=== PATIENT | female | born 1955 | race Two or more races ===

== ENCOUNTER 2019-06-13 15:39 | Emergency (ER) | payer OTHER, SELFPAY ==
--- NOTE | ~2019-06-13 | XR_ITS ---
EXAMINATION: XR chest 2V 06/13/2019 16:20 INDICATION: Shortness of breath for 3 days PROCEDURE: 2 view chest COMPARISON: 03/16/2018 FINDINGS: The lungs are clear. The cardiomediastinal silhouette is within normal limits. There are no pleural effusions. There is no pneumothorax suspected. IMPRESSION: 1: NO ACUTE CARDIOPULMONARY DISEASE. Reviewed, dictated and finalized at location A.
--- NOTE | ~2019-06-13 | CT_ITS ---
EXAMINATION: CTA chest PE protocol DATE: 06/13/2019 17:12 CDT INDICATION: Dyspnea TECHNIQUE: Computed tomographic angiography (CTA) of the chest was performed with 100 mL Omnipaque-35 0 intravenous contrast. The dose-length product was 460.55 mGy-cm. Maximum intensity projection 3D-re constructions of the aorta and other arteries were constructed by the technologist on a separate work station. Automated exposure control and iterative reconstruction technique were employed. COMPARISON: Chest dated 06/13/2019. FINDINGS: The study is technically adequate without evidence for pulmonary embolism. No significant p leural or pericardial effusion. Heart size normal. No lymphadenopathy. Small hiatal hernia. No focal airspace consolidation. No pneumothorax. No pulmonary nodules. No pneumothorax. No endobronchial lesi ons. IMPRESSION: 1. No evidence for pulmonary embolism. No acute cardiopulmonary disease. Reviewed, dictated and finalized at location A.
[2019-06-13 15:45] VITALS: BP 182/83; PULSE 84; RESP 18; TEMP 37.1; O2SAT 99
--- NOTE | 2019-06-13 15:45 | ECG_ITS ---
Measurements Intervals [place] Rate: 87 P: 58 AK: 139 QRS: 35 QRSD: 89 T: 38 QT: 345 QTc: 415 Interpretive Statements SINUS RHYTHM NONSPECIFIC T-WAVE ABNORMALITY- ANT/INF LEADS BORDERLINE ECG Electronically Signed On 06-14-2019 7:06:28 CDT by Vinicius Chirinos D.O.
[2019-06-13 15:48] VITALS: BP 182/83; PULSE 84; PULSE 85; RESP 10; O2SAT 99
[2019-06-13 16:01] LABS: Basophils Percent Auto 0.5 % (0.2-1.2); Eosinophils Absolute Auto 0.3 K/mm3 (0-0.3); Eosinophils Percent Auto 4.1 % (0-4.4); Hematocrit 38.1 % (37.0-47.0); Hemoglobin 12.6 g/dL (12.0-15.0); Immature Granulocyte Absolute 0.01 K/mm3 (0.00-0.031); Immature Granulocyte Percent A 0.1 % (0-0.5); Lymphocytes Absolute Auto 2.66 K/mm3 (0.9-3.2); Mean Corpuscular HGB Conc 33.1 g/dl (32-36); Mean Corpuscular Hemoglobin 28.9 pg (26-34); Mean Corpuscular Volume 87.4 fl (80-100); Mean Platelet Volume 10.7 fl (7.4-10.4); Monocytes Absolute Auto 0.8 K/mm3 (0.1-0.6); Monocytes Percent Auto 10.4 % (2.6-8.5); Neutrophils Absolute Auto 3.6 K/mm3 (1.3-6.7); Neutrophils Percent Auto 48.9 % (45.5-73.1); Platelet Count Result 302 k/mm3 (150-375); Red Blood Count 4.36 M/mm3 (4.2-5.4); Red Cell Distribution Width 12.4 % (11.5-14.5); White Blood Count 7.4 K/mm3 (4.5-10.0)
[2019-06-13 16:15] LABS: Blood Urea Nitrogen 11 mg/dL (7-17); Carbon Dioxide 26 mmol/L (22-30); Chloride 106 mmol/L (98-107); Estimated CRCL calculation 81 ml/min; Estimated Glomerular Filt Rate > 60; Glucose 111 mg/dL (65-105); Sodium 138 mmol/L (137-145)
--- NOTE | 2019-06-13 16:33 | ED.SOB ---
HPI - SOB/Dyspnea General Chief Complaint: Shortness of Breath/Dyspnea Stated Complaint: trouble breathing for two/three days Time Seen by Provider: 06/13/19 16:24 Source: RN notes reviewed History of Present Illness HPI Narrative: Patient presents emergency department from home for shortness of breath. States patient has been short of breath for the past 2 days. She denies any other symptoms denies any fevers or chills chest pain abdominal pain nausea or vomiting cough or any other symptoms. She states she just feels like she cannot take a deep breath.. Patient does states she is been having some intermittent lower back pain but denies any current pain at this time Related Data Home Medications Medication Instructions Recorded Confirmed aspirin 81 mg tablet,delayed 81 mg PO DAILY 04/22/19 release carvedilol 3.125 mg tablet 3.125 mg PO Q12H 04/22/19 losartan 25 mg tablet 25 mg PO DAILY 04/22/19 pravastatin 20 mg tablet 20 mg PO DAILY 04/22/19 Allergies Allergy/AdvReac Type Severity Reaction Status Date / Time No Known Allergies Allergy Unverified 06/13/19 15:49 Review of Systems Review of Systems: Narrative: Gen.: Denies fevers or chills ENT: Denies congestion Respiratory: Reports shortness of breath, denies cough CV: Denies chest pain or palpitations GI: Denies abdominal pain nausea, emesis or diarrhea denies burning, urgency, frequency or hematuria Musculoskeletal: Denies back pain or muscle pain Neuro: Denies numbness, tingling, weakness or focal weakness Skin: Denies rash Except as documented, all other systems reviewed and negative [facility] Past Medical History Medical History Arthritis Dyslipidemia Family history of early CAD Hyperlipemia Hypertension Obesity Social History Social History Smoking status: Never smoker Alcohol intake: never Gender identity (if verbalized by the patient): Female Exam Narrative: Exam Narrative: APPEARANCE: No acute distress, nontoxic, resting in bed EYES: EOMI HEENT: Normocephalic, atraumatic, OMM RESPIRATORY: No respiratory distress Clear to auscultation bilaterally with no rhonchi wheezing or rales. CARDIOVASCULAR: Regular rate and rhythm without murmurs rubs or gallops. ABDOMINAL: Soft, nontender, nondistended, no rebound or guarding MUSCULOSKELETAl: Moves all extremities. No clubbing, cyanosis or edema. Back: No midline thoracic lumbar tenderness palpation NEURO: Awake and alert. Following commands, speech normal, no focal deficits SKIN:: Warm, dry. No rashes lesions or abrasions PSYCHIATRIC: Normal affect/mood, Course Course Emergency Course: Reviewed old records. Patient did have pulmonary function test last year. Patient states is normal as well as normal stress test last year Patient states breathing is improved following breathing treatment Discussed with patient results of workup and diagnosis. Discussed need for follow-up with primary care, proper use of medication, and reasons to return to the emergency department. Patient understands and agrees to current treatment plan Vital Signs Vital signs: Vital Signs Temperature 98.7 F 06/13/19 15:45 Pulse Rate 84 06/13/19 15:45 Respiratory Rate 18 06/13/19 15:45 Blood Pressure 182/83 H 06/13/19 15:45 Pulse Oximetry 99 06/13/19 15:45 Temperature 98.7 F 06/13/19 15:45 Pulse Rate 79 06/13/19 17:51 Respiratory Rate 12 06/13/19 17:51 Blood Pressure 147/69 H 06/13/19 17:51 Pulse Oximetry 96 06/13/19 17:51 MDM - SOB/Dyspnea MDM Narrative Medical decision making narrative: Patient has dyspnea of unclear etiology. No wheezing on clinical exam. Low risk well score, PE is felt unlikely. No abnormalities noted on chest x-ray. Patient?s EKG is without high-risk changes. Oxygen saturations are normal. Patient is felt to be a reasonable candidate for additional e
[2019-06-13 16:38] VITALS: BP 155/62; PULSE 76; RESP 17; O2SAT 98
--- NOTE | 2019-06-13 16:38 | PC.NURSE ---
spoke with lab about adding on labwork, vladislav from lab states that she will get accept specimens.
[2019-06-13 17:03] LABS: NT Pro B Type Natriuretic Pept 50 PG/ML (5-100)
[2019-06-13 17:05] LABS: Troponin I < 0.012 ng/mL (0.000-0.034)
[2019-06-13] MEDS: ALBUTEROL SULFATE NEB 2.5 MG/0.5 ML INH 5 MG INHALATION (17:39)
[2019-06-13] MEDS: IPRATROPIUM BR 0.02% INH SOLN 0.5 MG/2.5 ML VIAL INHALATION (17:39)
[2019-06-13 17:40] VITALS: PULSE 79; RESP 18
[2019-06-13 17:51] VITALS: BP 147/69; PULSE 79; RESP 12; O2SAT 96
[2019-06-13 18:03] LABS: Add Urine Microscopic? YES; Appearance Urine Clear (Clear); Bilirubin Urine Negative (Negative); Blood Urine Negative (Negative); Color Urine Straw (Yellow); Glucose Urine UA Negative (Negative); Ketones Urine Negative (Negative); Leukocyte Esterase Ur Trace LEU/UL (Negative); Mucus Urine Rare /lpf; Nitrate Urine Negative (Negative); Protein Urine Negative (Negative); RBC Urine 0-2 /hpf (0-2); Specific Grav Ur 1.009 (1.001-1.035); Squamous Epithelial Cell Urine Rare /hpf (Few); Urobilinogen Urine Negative mg/dL (<2.0)
[2019-06-13 18:28] VITALS: BP 149/78; PULSE 78; RESP 16; O2SAT 100
== END 2019-06-13 18:29 | disposition home or self-care (01) ==
PROVIDERS: Emergency Provider Emergency Medicine; PCP Family Medicine
DX: R06.00 Dyspnea, unspecified (principal); N39.0 Urinary tract infection, site not specified; M19.90 Unspecified osteoarthritis, unspecified site; E78.5 Hyperlipidemia, unspecified; I10 Essential (primary) hypertension; E66.9 Obesity, unspecified; Z68.32 Body mass index [BMI] 32.0-32.9, adult; R94.31 Abnormal electrocardiogram [ECG] [EKG]
CPT/HCPCS: 36415; 71046; 71275; 80048; 81001; 83880; 84484; 85025; 93005; 94640; 99284; Q9967

== ENCOUNTER 2019-08-08 10:03 | Outpatient (CLI) | payer OTHER, SELFPAY | END 2019-08-08 10:04 | disposition home or self-care (01) | LOC: ANHLAB 10:05 | PROVIDERS: PCP Family Medicine; Visit Provider Family Medicine | DX: E55.9 Vitamin D deficiency, unspecified (principal) | CPT/HCPCS: 36415; 82306 ==

== ENCOUNTER 2020-04-26 08:27 | Outpatient (CLI) | payer OTHER, SELFPAY | END 2020-04-26 08:28 | LOC: ANHCOVIDVC 08:27 | PROVIDERS: PCP Family Medicine | DX: Z23 Encounter for immunization (principal) | CPT/HCPCS: 0001A; 91300 ==

== ENCOUNTER 2020-04-26 09:12 | Outpatient (CLI) | payer OTHER, SELFPAY ==
[2020-04-26 09:48] LABS: Basophils Percent Auto 0.5 % (0.2-1.2); Eosinophils Absolute Auto 0.3 K/mm3 (0-0.3); Eosinophils Percent Auto 4.5 % (0-4.4); Hematocrit 39.2 % (37.0-47.0); Hemoglobin 12.8 g/dL (12.0-15.0); Immature Granulocyte Absolute 0.02 K/mm3 (0.00-0.031); Immature Granulocyte Percent A 0.3 % (0-0.5); Lymphocytes Percent Auto 30.4 % (18.3-44.2); Mean Corpuscular HGB Conc 32.7 g/dl (32-36); Mean Corpuscular Hemoglobin 28.8 pg (26-34); Mean Corpuscular Volume 88.1 fl (80-100); Mean Platelet Volume 10.2 fl (7.4-10.4); Monocytes Absolute Auto 0.5 K/mm3 (0.1-0.6); Neutrophils Absolute Auto 3.5 K/mm3 (1.3-6.7); Neutrophils Percent Auto 56.3 % (45.5-73.1); Platelet Count Result 302 k/mm3 (150-375); Red Blood Count 4.45 M/mm3 (4.2-5.4); Red Cell Distribution Width 12.6 % (11.5-14.5); White Blood Count 6.2 K/mm3 (4.5-10.0)
[2020-04-26 10:20] LABS: Alanine Aminotransferase 17 U/L (4-35); Albumin Level 4.2 g/dL (3.5-5.1); Alkaline Phosphatase 69 U/L (38-126); Anion Gap 5 mmol/L (8-16); Aspartate Amino Transferase 23 U/L (14-36); Bilirubin,Total 0.3 mg/dL (0.2-1.3); Blood Urea Nitrogen 8 mg/dL (7-17); Calcium 9.4 mg/dL (8.4-10.2); Carbon Dioxide 28 mmol/L (22-30); Chloride 108 mmol/L (98-107); Cholesterol 161 mg/dL (0-200); Estimated Glomerular Filt Rate > 60; Glucose 104 mg/dL (65-105); HDL Direct 51 mg/dL; Potassium 4.4 mmol/L (3.4-5.0); Sodium 141 mmol/L (137-145); Triglycerides 165 mg/dL (<150)
[2020-04-26 11:25] LABS: Creatinine Urine 12.5 mg/dL
[2020-04-26 11:29] LABS: LDL Cholesterol Direct 70 mg/dL
[2020-04-26 11:40] LABS: Free T4 Free Thyroxine 1.07 ng/mL (0.78-2.19); Vitamin D 25 Hydroxy 42.7 ng/mL
[2020-04-26 11:51] LABS: Microalbumin Urine Random < 6.0 mg/L (0-16.7)
[2020-04-26 12:15] LABS: Total Triiodothyronine (T3) 1.35 NG/ML (0.97-1.69)
== END 2020-04-26 09:13 | disposition home or self-care (01) ==
LOC: ANHLAB 09:16
PROVIDERS: PCP Family Medicine; Visit Provider Family Medicine
DX: Z13.0 Encounter for screening for diseases of the blood and blood-forming organs and certain disorders involving the immune mechanism (principal); Z13.6 Encounter for screening for cardiovascular disorders; Z13.220 Encounter for screening for lipoid disorders; R80.9 Proteinuria, unspecified; E55.9 Vitamin D deficiency, unspecified
CPT/HCPCS: 0001A; 36415; 80053; 80061; 82043; 82306; 84439; 84443; 84480; 85025; 91300

== ENCOUNTER 2020-05-17 07:57 | Outpatient (CLI) | payer OTHER, SELFPAY | END 2020-05-17 07:58 | disposition home or self-care (01) | LOC: ANHCOVIDVC 07:57 | PROVIDERS: PCP Family Medicine | DX: Z23 Encounter for immunization (principal) | CPT/HCPCS: 0002A; 91300 ==

== ENCOUNTER 2020-06-21 16:36 | Emergency (ER) | payer OTHER, SELFPAY ==
--- NOTE | ~2020-06-21 | CT_ITS ---
EXAMINATION: CT abdomen pelvis wo con EXAM DATE: 06/21/2020 20:19 INDICATION: Right flank pain. TECHNIQUE: Spiral CT of the abdomen and pelvis was performed without contrast. Axial, coronal and sag ittal images were reviewed. The dose-length product (DLP) for this examination was 286.41 mGy-cm. T he exposure was tailored according to patient size (auto mA exposure control), and iterative reconstr uction (ASIR) was used as additional dose reduction technique. There is no prior study for compariso n. FINDINGS: Portal and splenic veins are patent. Kidneys enhance symmetrically. There is no hydroneph rosis. The uterus is not identified and has likely been surgically resected. The bladder is unrema rkable. The liver, spleen, adrenal glands and pancreas are unremarkable. Gallbladder is unremarkabl e. No biliary obstruction. There is no retroperitoneal or pelvic lymphadenopathy. The appendix is normal. There is moderate scattered colonic diverticulosis. There is no adjacent inf lammatory change to suggest diverticulitis. There is small sliding gastroesophageal hiatal hernia. T here is expected amount of colonic stool. No free intraperitoneal gas. The heart is normal in siz e. There are no pericardial or pleural effusions. The lung bases are unremarkable. The bones are u nremarkable. IMPRESSION: 1. No nephrolithiasis, hydronephrosis or acute intra-abdominal findings. 2. Moderate scattered colonic diverticulosis. Reviewed, dictated and finalized at location A.
[2020-06-21 17:20] VITALS: BP 176/72; PULSE 74; RESP 18; TEMP 36.3; O2SAT 98
[2020-06-21 17:30] LABS: Basophils Percent Auto 0.3 % (0.2-1.2); Eosinophils Absolute Auto 0.3 K/mm3 (0-0.3); Eosinophils Percent Auto 4.9 % (0-4.4); Hematocrit 38.6 % (37.0-47.0); Hemoglobin 12.7 g/dL (12.0-15.0); Immature Granulocyte Absolute 0.02 K/mm3 (0.00-0.031); Immature Granulocyte Percent A 0.3 % (0-0.5); Lymphocytes Absolute Auto 2.78 K/mm3 (0.9-3.2); Lymphocytes Percent Auto 40.9 % (18.3-44.2); Mean Corpuscular HGB Conc 32.9 g/dl (32-36); Mean Corpuscular Hemoglobin 29.2 pg (26-34); Mean Corpuscular Volume 88.7 fl (80-100); Mean Platelet Volume 10.3 fl (7.4-10.4); Monocytes Absolute Auto 0.6 K/mm3 (0.1-0.6); Monocytes Percent Auto 8.5 % (2.6-8.5); Neutrophils Absolute Auto 3.1 K/mm3 (1.3-6.7); Neutrophils Percent Auto 45.1 % (45.5-73.1); Platelet Count Result 303 k/mm3 (150-375); Red Blood Count 4.35 M/mm3 (4.2-5.4); Red Cell Distribution Width 12.2 % (11.5-14.5); White Blood Count 6.8 K/mm3 (4.5-10.0)
[2020-06-21 17:39] LABS: Anion Gap 5 mmol/L (8-16); Blood Urea Nitrogen 9 mg/dL (7-17); Calcium 9.6 mg/dL (8.4-10.2); Carbon Dioxide 28 mmol/L (22-30); Chloride 107 mmol/L (98-107); Estimated CRCL calculation 79 ml/min; Estimated Glomerular Filt Rate > 60; Glucose 92 mg/dL (65-105); Potassium 4.2 mmol/L (3.4-5.0); Sodium 140 mmol/L (137-145)
[2020-06-21 19:34] LABS: Add Urine Microscopic? YES; Appearance Urine Clear (Clear); Bilirubin Urine Negative (Negative); Blood Urine Negative (Negative); Color Urine Colorless (Yellow); Glucose Urine UA Negative (Negative); Ketones Urine Negative (Negative); Leukocyte Esterase Ur Trace LEU/UL (Negative); Mucus Urine Rare /lpf; Nitrate Urine Negative (Negative); Protein Urine Negative (Negative); RBC Urine 0-2 /hpf (0-2); Squamous Epithelial Cell Urine Rare /hpf (Few); Urobilinogen Urine Negative mg/dL (<2.0); WBC Urine 0-3 /hpf
[2020-06-21 19:35] LABS: Specific Grav Ur 1.003 (1.001-1.035)
--- NOTE | 2020-06-21 20:56 | ED.GENADULT ---
HPI - General Adult General Chief complaint: Back Pain/Injury Stated complaint: back pain Time Seen by Provider: 06/21/20 20:04 Source: patient and RN notes reviewed Mode of arrival: ambulatory Limitations: no limitations History of Present Illness HPI narrative: Patient is 64-year-old female who presents with midline lumbar and right buttock pain for 10 days has been taking Norflex from an old prescription with some improvement patient denies any new injury or trauma or any fever chills. Patient presents in no distress notes that the pain is worse with sitting and better with standing sometimes it radiates to the abdomen. Denies illness injury or trauma is noted Related Data Home Medications Medication Instructions Recorded Confirmed aspirin 81 mg tablet,delayed 81 mg PO DAILY 04/22/19 07/22/19 release losartan 25 mg tablet 25 mg PO DAILY 04/22/19 07/22/19 pravastatin 20 mg tablet 20 mg PO DAILY 04/22/19 07/22/19 carvedilol 3.125 mg tablet 6.25 mg PO Q12H tablet 07/22/19 07/22/19 Allergies Allergy/AdvReac Type Severity Reaction Status Date / Time No Known Allergies Allergy Unverified 07/22/19 08:39 Review of Systems Review of Systems: All systems reviewed & are unremarkable except as noted in HPI and below PMFSH Past Medical History Medical History (Updated 06/21/20 @ 20:58 by Alfredo Donaldson PA-C) Arthritis Dyslipidemia Family history of early CAD Hyperlipemia Hypertension Obesity Social History Social History Smoking status: Never smoker Alcohol intake: never Gender identity (if verbalized by the patient): Female Exam Narrative: Exam Narrative: GENERAL: Well-appearing, obese, and in no acute distress. HEAD: Normocephalic, atraumatic. EYES: PERRLA and EOMI. ENT: Nares clear, no rhinorrhea or epistaxis. Mucous membranes moist. CHEST: Clear to auscultation. No respiratory distress. No wheezes rales or rhonchi HEART: Regular rate and rhythm. No murmur heard. Normal peripheral pulses. ABDOMEN: Soft, nontender, nondistended EXTREMITIES: Normal range of motion. No edema. Midline lumbar tenderness no rashes or other deformities noted SKIN: Warm, dry, no rash. NEURO: No focal deficits. Alert and oriented x3. Cranial nerves II through XII grossly intact PSYCH: Normal mood and affect. Course Course Emergency Course: Patient evaluated the emergency department hemodynamically stable ABCs and vital signs intact and stable felt appropriate for outpatient reevaluation will follow with primary care for further evaluation is felt appropriate for outpatient reevaluation and agrees to follow with primary care Vital Signs Vital signs: Vital Signs Temperature 97.4 F L 06/21/20 17:20 Pulse Rate 74 06/21/20 17:20 Respiratory Rate 18 06/21/20 17:20 Blood Pressure 176/72 H 06/21/20 17:20 Pulse Oximetry 98 06/21/20 17:20 Temperature 97.4 F L 06/21/20 17:20 Pulse Rate 74 06/21/20 17:20 Respiratory Rate 18 06/21/20 17:20 Blood Pressure 176/72 H 06/21/20 17:20 Pulse Oximetry 98 06/21/20 17:20 Medical Decision Making MDM Narrative Medical decision making narrative: Patients pain is positional in nature and localized to back without signs of cord compression or cauda equina based on neurological exam, skeletal exam and history. No fever or other significant factors to suggest osteomyelitis or spinal epidural abscess. No symptoms or signs to suggest pain is referred from abdominal or / cardiopulmonary sources. No pulsatile masses noted on exam. Patient ambulates with steady gait and is stable for outpatient management given case findings. Vital Signs Vital Signs: Vital Signs Temperature 97.4 F L 06/21/20 17:20 Pulse Rate 74 06/21/20 17:20 Respiratory Rate 18 06/21/20 17:20 Blood Pressure 176/72 H 06/21/20 17:20 Pulse Oximetry 98 06/21/20 17:20 Temperature 97.4 F L 06/21/20 17:20 Pulse
[2020-06-21 21:17] VITALS: BP 168/89; PULSE 84; RESP 18; TEMP 36.6; O2SAT 99
== END 2020-06-21 21:18 | disposition home or self-care (01) ==
PROVIDERS: Emergency Provider Family Medicine; PCP Family Medicine
DX: M54.5 Low back pain (principal); E78.5 Hyperlipidemia, unspecified; I10 Essential (primary) hypertension; M19.90 Unspecified osteoarthritis, unspecified site; E66.9 Obesity, unspecified; Z68.31 Body mass index [BMI] 31.0-31.9, adult; Z79.82 Long term (current) use of aspirin; K57.90 Diverticulosis of intestine, part unspecified, without perforation or abscess without bleeding
CPT/HCPCS: 36415; 74176; 80048; 81001; 85025; 99284

== ENCOUNTER 2021-02-15 08:35 | Outpatient (CLI) | payer OTHER, SELFPAY ==
[2021-02-15 08:58] LABS: Basophils Percent Auto 0.4 % (0.2-1.2); Eosinophils Absolute Auto 0.2 K/mm3 (0-0.3); Eosinophils Percent Auto 4.2 % (0-4.4); Hematocrit 39.2 % (37.0-47.0); Immature Granulocyte Absolute 0.01 K/mm3 (0.00-0.031); Immature Granulocyte Percent A 0.2 % (0-0.5); Lymphocytes Absolute Auto 2.25 K/mm3 (0.9-3.2); Lymphocytes Percent Auto 41.2 % (18.3-44.2); Mean Corpuscular HGB Conc 33.2 g/dl (32-36); Mean Corpuscular Hemoglobin 29.7 pg (26-34); Mean Corpuscular Volume 89.5 fl (80-100); Mean Platelet Volume 10.2 fl (7.4-10.4); Monocytes Absolute Auto 0.4 K/mm3 (0.1-0.6); Monocytes Percent Auto 7.3 % (2.6-8.5); Neutrophils Absolute Auto 2.6 K/mm3 (1.3-6.7); Neutrophils Percent Auto 46.7 % (45.5-73.1); Platelet Count Result 261 k/mm3 (150-375); Red Blood Count 4.38 M/mm3 (4.2-5.4); Red Cell Distribution Width 12.1 % (11.5-14.5); White Blood Count 5.5 K/mm3 (4.5-10.0)
[2021-02-15 09:50] LABS: Free T4 Free Thyroxine 1.13 ng/mL (0.78-2.19); Vitamin D 25 Hydroxy 51.1 ng/mL
[2021-02-15 10:06] LABS: Creatinine Urine 165.2 mg/dL
[2021-02-15 10:10] LABS: Microalbumin Urine Random 11.6 mg/L (0-16.7)
[2021-02-15 10:14] LABS: Alanine Aminotransferase 19 U/L (4-35); Albumin Level 4.4 g/dL (3.5-5.1); Alkaline Phosphatase 75 U/L (38-126); Anion Gap 8 mmol/L (8-16); Aspartate Amino Transferase 24 U/L (14-36); Bilirubin,Total 0.4 mg/dL (0.2-1.3); Blood Urea Nitrogen 9 mg/dL (7-17); Calcium 9.4 mg/dL (8.4-10.2); Carbon Dioxide 26 mmol/L (22-30); Chloride 107 mmol/L (98-107); Cholesterol 181 mg/dL (0-200); Estimated Glomerular Filt Rate > 60; Glucose 101 mg/dL (65-110); HDL Direct 40 mg/dL; Potassium 4.7 mmol/L (3.4-5.0); Sodium 141 mmol/L (137-145); Triglycerides 213 mg/dL (<150)
[2021-02-15 10:35] LABS: LDL Cholesterol Direct 89 mg/dL
[2021-02-15 10:58] LABS: Total Triiodothyronine (T3) 1.26 NG/ML (0.97-1.69)
== END 2021-02-15 08:36 | disposition home or self-care (01) ==
PROVIDERS: PCP Family Medicine; Visit Provider Family Medicine
DX: I10 Essential (primary) hypertension (principal); E55.9 Vitamin D deficiency, unspecified; R80.9 Proteinuria, unspecified; Z13.0 Encounter for screening for diseases of the blood and blood-forming organs and certain disorders involving the immune mechanism; Z13.6 Encounter for screening for cardiovascular disorders; Z13.220 Encounter for screening for lipoid disorders; Z13.29 Encounter for screening for other suspected endocrine disorder
CPT/HCPCS: 36415; 80053; 80061; 82043; 82306; 84439; 84443; 84480; 85025

== ENCOUNTER 2021-03-30 08:09 | Outpatient (CLI) | payer OTHER, SELFPAY ==
[2021-03-30 08:39] LABS: Basophils Percent Auto 0.7 % (0.2-1.2); Eosinophils Absolute Auto 0.2 K/mm3 (0-0.3); Hematocrit 37.7 % (37.0-47.0); Hemoglobin 12.2 g/dL (12.0-15.0); Immature Granulocyte Absolute 0.01 K/mm3 (0.00-0.031); Immature Granulocyte Percent A 0.2 % (0-0.5); Lymphocytes Absolute Auto 2.01 K/mm3 (0.9-3.2); Lymphocytes Percent Auto 33.2 % (18.3-44.2); Mean Corpuscular HGB Conc 32.4 g/dl (32-36); Mean Corpuscular Hemoglobin 29.5 pg (26-34); Mean Corpuscular Volume 91.1 fl (80-100); Mean Platelet Volume 10.3 fl (7.4-10.4); Monocytes Absolute Auto 0.5 K/mm3 (0.1-0.6); Monocytes Percent Auto 8.4 % (2.6-8.5); Neutrophils Absolute Auto 3.3 K/mm3 (1.3-6.7); Neutrophils Percent Auto 53.5 % (45.5-73.1); Platelet Count Result 298 k/mm3 (150-375); Red Blood Count 4.14 M/mm3 (4.2-5.4); Red Cell Distribution Width 12.7 % (11.5-14.5); White Blood Count 6.1 K/mm3 (4.5-10.0)
[2021-03-30 08:49] LABS: Alanine Aminotransferase 17 U/L (4-35); Albumin Level 4.1 g/dL (3.5-5.1); Alkaline Phosphatase 79 U/L (38-126); Anion Gap 3 mmol/L (8-16); Aspartate Amino Transferase 23 U/L (14-36); Bilirubin,Total 0.2 mg/dL (0.2-1.3); Blood Urea Nitrogen 11 mg/dL (7-17); Calcium 9.2 mg/dL (8.4-10.2); Carbon Dioxide 28 mmol/L (22-30); Chloride 108 mmol/L (98-107); Estimated Glomerular Filt Rate > 60; Glucose 101 mg/dL (65-110); Lipase 169 U/L (23-300); Potassium 4.5 mmol/L (3.4-5.0); Sodium 139 mmol/L (137-145)
[2021-03-30 08:58] LABS: INR 0.9
== END 2021-03-30 08:10 | disposition home or self-care (01) ==
LOC: ANHLAB 08:11
PROVIDERS: PCP Family Medicine; Visit Provider Family Medicine
DX: K59.00 Constipation, unspecified (principal); R10.9 Unspecified abdominal pain
CPT/HCPCS: 36415; 80053; 83690; 85025; 85610; 85730

== ENCOUNTER 2021-04-06 14:21 | Outpatient (CLI) | payer OTHER, SELFPAY ==
--- NOTE | ~2021-04-06 | CT_ITS ---
EXAMINATION: CT abdomen pelvis w con INDICATION: Constipation, acute abdominal pain TECHNIQUE: Computed tomographic images of the abdomen and pelvis were obtained after the administrati on of 100 cc of Omnipaque 350 intravenous contrast. The dose-length product (DLP) was 639.55 mGy-cm. Automated exposure control and iterative reconstruction technique were employed. COMPARISON: 06/21/2020 FINDINGS: Minimal dependent atelectasis is present in the lung bases. The heart size is normal. There is a small sliding hiatal hernia. The liver, spleen, pancreas, gallbladder, and adrenal glands are n ormal. Hypoattenuating lesions in the kidneys, measuring up to 6 mm on the right, are too small to ch aracterize but likely represent cysts. No pathologically enlarged abdominal or pelvic lymph nodes are identified. There is no free intraperitoneal gas or evidence of bowel obstruction. Colonic diverticu losis is present without evidence of diverticulitis. The appendix is normal. There is moderate lumbar spondylosis. IMPRESSION: 1. No CT correlate for the patient's symptoms. Reviewed, dictated and finalized at location A. 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
== END 2021-04-06 14:22 | disposition home or self-care (01) ==
LOC: ANHIMG 14:25
PROVIDERS: PCP Family Medicine; Visit Provider Nurse Practitioner Adult Health
DX: K59.00 Constipation, unspecified (principal); R10.0 Acute abdomen; M47.816 Spondylosis without myelopathy or radiculopathy, lumbar region; K57.30 Diverticulosis of large intestine without perforation or abscess without bleeding
CPT/HCPCS: 74177; Q9967

== ENCOUNTER 2021-09-13 15:09 | Emergency (ER) | payer MEDICARE, MEDICAID, SELFPAY ==
--- NOTE | ~2021-09-13 | XR_ITS ---
XR knee RT 3V DATE: 09/13/2021 17:02 INDICATION: Right knee pain TECHNIQUE: [place] and upright AP and lateral views COMPARISON: None FINDINGS: There is mild periarticular spurring at the patellofemoral compartment and mild loss of hei ght at the lateral compartment. No fracture or dislocation is evident. There is evidence of mild suprapatellar knee joint effusion. No radiopaque intra-articular loose body or chondrocalcinosis. No periosteal reaction or bone destruc tion. IMPRESSION: Mild knee joint effusion Mild patellofemoral and lateral compartment osteoarthritis Reviewed, dictated and finalized at location B.
--- NOTE | ~2021-09-13 | XR_ITS ---
XR shoulder RT min 2V DATE: 09/13/2021 17:02 INDICATION: Right shoulder pain TECHNIQUE: 4 views COMPARISON: 03/06/2014 right shoulder FINDINGS: No fracture or dislocation, periosteal reaction or bone destruction or abnormal soft tissue calcification of the right shoulder. IMPRESSION: Negative Reviewed, dictated and finalized at location B. IMPRESSION: Negative
--- NOTE | ~2021-09-13 | XR_ITS ---
EXAMINATION: XR chest 2V Exam Date/Time: 09/13/2021 16:50 CDT HISTORY: sob Comparison: 06/13/2019. RESULT: Lines, tubes, and devices: None. Lungs and pleura: Clear. Cardiomediastinal silhouette: Stable. Other: No acute osseous or upper abdominal finding. IMPRESSION: No acute cardiopulmonary process. Reviewed, dictated and finalized at location K.
[2021-09-13 15:11] VITALS: BP 148/78; PULSE 78; RESP 20; TEMP 36.6; O2SAT 98
[2021-09-13 15:19] VITALS: O2SAT 100
--- NOTE | 2021-09-13 15:19 | ECG_ITS ---
Measurements Intervals [place] Rate: 68 P: 38 VA: 129 QRS: 42 QRSD: 90 T: 32 QT: 381 QTc: 407 Interpretive Statements SINUS RHYTHM WITH PREMATURE VENTRICULAR CONTRACTION BASELINE ARTIFACT NONSPECIFIC T-WAVE ABNORMALITY ABNORMAL ECG COMPARED TO ECG 06/13/2019 15:44:31 PVC NOW PRESENT Electronically Signed On 09-13-2021 15:41:45 CDT by Cory Gillis M.D.
[2021-09-13 15:20] VITALS: PULSE 74
--- NOTE | 2021-09-13 15:29 | ED.SOB ---
HPI - SOB/Dyspnea General Chief Complaint: Shortness of Breath/Dyspnea Stated Complaint: R leg pain, shortness of breath Time Seen by Provider: 09/13/21 15:29 Source: patient and RN notes reviewed Mode of arrival: ambulatory Limitations: no limitations History of Present Illness HPI Narrative: 66 years old female presents with pain at the right knee, right shoulder and right shoulder blade started 1 week ago, constant, worse with most of the movement, better if she remains still. Yesterday started having right lower back pain, without radiation. Worse with walking. Patient also complaining of shortness of breath while working because of the pain in her shoulder and knee. Or probably because she got scared about her knee and the shoulder. Currently denies any shortness of breath. Patient reported having similar symptoms of shortness of breath when she gets anxious. She denies any fever, chills, nausea, vomiting, coughing or chest pain Related Data Home Medications Medication Instructions Recorded Confirmed aspirin 81 mg tablet,delayed 81 mg PO DAILY 04/22/19 07/22/19 release (Adult Aspirin Regimen) losartan 25 mg tablet 25 mg PO DAILY 04/22/19 07/22/19 pravastatin 20 mg tablet 20 mg PO DAILY 04/22/19 07/22/19 carvedilol 3.125 mg tablet 6.25 mg PO Q12H 07/22/19 07/22/19 Allergies Allergy/AdvReac Type Severity Reaction Status Date / Time No Known Allergies Allergy Verified 09/13/21 15:18 Review of Systems Review of Systems: All systems reviewed & are unremarkable except as noted in HPI and below PMFSH Past Medical History Medical History Arthritis Dyslipidemia Family history of early CAD Hyperlipemia Hypertension Obesity Social History Social History Smoking status: Never smoker Alcohol intake: never Gender identity (if verbalized by the patient): Female Exam Narrative: General appearance: Well-developed, well-nourished Skin: Normal color Head: Normocephalic, nontraumatic Eyes: Clear conjunctiva ENT: Oropharynx normal, ears normal, nose normal Neck: Supple, nontender Chest and respiratory: Airway patent, no respiratory distress, no accessory muscle use Heart: Regular rate/rhythm Abdomen: Soft, nontender, no organomegaly, quiet bowel sounds Vascular: Normal peripheral pulses, normal capillary refill. Musculoskeletal: Slight diffuse tenderness of the right knee and right shoulder, without swelling or bruises. Slight limited range of motion. Neurologic: Alert and oriented ?3, CRISIS THERAPIST is normal as tested, no gross motor deficit Course ROLL PANNER/PA Physician Supervision Work-up did not show any significant findings to explain patient condition. Except x-ray showed right knee effusion which is mild, osteoarthritis is my concern. Patient will be discharged on anti-inflammatory medication. The shortness of breath high likely anxiety related. Vital Signs Vital signs: Vital Signs Temperature 36.6 C 09/13/21 15:11 Pulse Rate 78 09/13/21 15:11 Respiratory Rate 20 09/13/21 15:11 Blood Pressure 148/78 H 09/13/21 15:11 Pulse Oximetry 98 09/13/21 15:11 Oxygen Delivery Room Air 09/13/21 15:11 Temperature 36.6 C 09/13/21 15:11 Pulse Rate 65 09/13/21 17:58 Respiratory Rate 13 09/13/21 17:58 Blood Pressure 138/91 H 09/13/21 17:58 Pulse Oximetry 100 09/13/21 17:58 Oxygen Delivery Room Air 09/13/21 15:19 MDM - SOB/Dyspnea Lab Data Result diagrams: 09/13/21 15:25 09/13/21 15:25 Labs: Lab Results 09/13/21 09/13/21 09/13/21 Range/Units 15:24
[2021-09-13 15:32] LABS: Basophils Percent Auto 0.4 % (0.2-1.2); Eosinophils Absolute Auto 0.4 K/mm3 (0-0.3); Eosinophils Percent Auto 4.6 % (0-4.4); Hematocrit 36.8 % (37.0-47.0); Hemoglobin 12.1 g/dL (12.0-15.0); Immature Granulocyte Absolute 0.02 K/mm3 (0.00-0.031); Immature Granulocyte Percent A 0.2 % (0-0.5); Lymphocytes Absolute Auto 2.88 K/mm3 (0.9-3.2); Lymphocytes Percent Auto 31.4 % (18.3-44.2); Mean Corpuscular HGB Conc 32.9 g/dl (32-36); Mean Corpuscular Hemoglobin 29.2 pg (26-34); Mean Corpuscular Volume 88.9 fl (80-100); Monocytes Absolute Auto 0.8 K/mm3 (0.1-0.6); Monocytes Percent Auto 8.4 % (2.6-8.5); Platelet Count Result 326 k/mm3 (150-375); Red Blood Count 4.14 M/mm3 (4.2-5.4); Red Cell Distribution Width 12.3 % (11.5-14.5); White Blood Count 9.2 K/mm3 (4.5-10.0)
[2021-09-13 15:40] LABS: Alanine Aminotransferase 15 U/L (6-35); Albumin Level 4.4 g/dL (3.5-5.1); Alkaline Phosphatase 79 U/L (38-126); Anion Gap 8 mmol/L (8-16); Aspartate Amino Transferase 22 U/L (14-36); Bilirubin,Total 0.2 mg/dL (0.2-1.3); Blood Urea Nitrogen 11 mg/dL (7-17); Calcium 8.8 mg/dL (8.4-10.2); Carbon Dioxide 29 mmol/L (22-30); Chloride 100 mmol/L (98-107); Estimated Glomerular Filt Rate > 60; Glucose 115 mg/dL (65-110); Potassium 4.1 mmol/L (3.4-5.0); Sodium 137 mmol/L (137-145)
[2021-09-13 15:49] LABS: Prothrombin Time 12.3 Seconds (11.1-14.7)
[2021-09-13 15:50] LABS: Partial Thromboplastin Time 34.9 SECONDS (22.3-36.8)
[2021-09-13 15:53] LABS: D Dimer 0.36 ug/mL (<0.48)
[2021-09-13 16:32] LABS: SARS-CoV-2 RNA PCR Negative
[2021-09-13 16:36] LABS: NT Pro B Type Natriuretic Pept 68 pg/mL (5-100); Troponin I < 0.012 ng/mL (0.000-0.034)
[2021-09-13] MEDS: IBUPROFEN 600 MG TABLET PO (17:06)
[2021-09-13] MEDS: ACETAMINOPHEN 325 MG TABLET 650 MG PO (17:06)
[2021-09-13 17:07] VITALS: BP 138/89; PULSE 79; RESP 18; O2SAT 100
[2021-09-13 17:58] VITALS: BP 138/91; PULSE 65; RESP 13; O2SAT 100
== END 2021-09-13 17:58 | disposition home or self-care (01) ==
PROVIDERS: Emergency Provider Emergency Medicine; PCP Family Medicine
DX: M25.511 Pain in right shoulder (principal); M25.561 Pain in right knee; M54.50 Low back pain, unspecified; R06.02 Shortness of breath; Z20.822 Contact with and (suspected) exposure to COVID-19
CPT/HCPCS: 36415; 71046; 73030; 73562; 80053; 83735; 83880; 84484; 85025; 85380; 85610; 85730; 93005; 99284; A9270; C9803; U0003; U0005

== ENCOUNTER 2021-10-27 15:30 | Outpatient (RCR) | payer MEDICARE, MEDICAID, SELFPAY ==
--- NOTE | 2021-10-10 14:59 | PTOPEVAL1 ---
Evaluation Information Assessment Status Evaluation Diagnosis R knee pain Subjective Information no injury to R knee; medicine helps and pain is a little better; Reported Pain Level Pain Score 5: Self Report Additional Pain Score Comments reports awaken from sleeping 2-3x/night due to knee pain; educated on sleeping with pillow between knees--has not been doing Assessment PT Clinical Summary Home has the diagnosis of R knee pain. She reports pain is increased with walking and standing, decreased with sitting and awakens her from sleeping. With the evaluation, she has decreased strength of R hip and knee, with pain at end range of knee extension, with crepitus. There is tenderness with palpation over R ITB- mid to distal ITB. She stands with decreased weight on her R leg, with knee valgus and slightly flexed. Skilled PT services are indicated to increase her strength, modalities to decrease pain and education for home exercises, pain management and position of leg. Plan of Care Interventions Electrical Stimulation,Manual Therapy,Neuro Re- education,Patient/Caregiver Educati,Therapeutic Activities,Therapeutic Exercise PT Services Indicated Yes Treatment Frequency and 2x/wk for 3 weeks Duration These treatments will address the objective and functional deficits as defined above. The patient will be advanced safely and appropriately in order for the patient to progress towards his/her prior level of function. Additional exercises will be introduced and as well as a comprehensive home exercise program upon discharge, if needed, ?to ensure carryover of functional gains achieved in the clinic. This treatment plan has been reviewed and agreement upon by the patient.
--- NOTE | 2021-10-27 16:00 | PTOPDC ---
Assessment and note entered by Chantelle Fajardo, PT Evaluation Information Assessment Status Discharge Diagnosis R knee pain Subjective Information She reports knee is better; is not awakening from pain in her knee with sleeping; is doing the exercises 1-2 x/day; is walking about 1/2 mile- want to build back up to walking more; ice helps knee; Reported Pain Level Pain Score Self Report Additional Pain Score Comments pain range of 0-8/10 R knee; Assessment PT Clinical Summary Home has received 5 PT sessions for R knee pain/OA. Compared to the initial evaluation: pain rating at the low rating has decreased from 2 to 0/10 and high rating increased from 7 to 8/10; reported sleeping tolerance, is no longer awakening from knee pain; reported walking tolerance is the same; strength with the functional motion testing have all increased; she has been educated on a home exercise program and using ice for pain control. The goals were partially achieved; Discharge PT services. Plan of Care PT Services Indicated No
== END 2021-10-31 10:34 | disposition home or self-care (01) ==
LOC: ANHPT 15:30
PROVIDERS: PCP Family Medicine; Visit Provider Family Medicine
DX: M25.561 Pain in right knee (principal)
CPT/HCPCS: 97014; 97110; 97140; 97161; G0283

== ENCOUNTER 2022-02-09 15:30 | Outpatient (RCR) | payer MEDICARE, MEDICAID, SELFPAY ==
--- NOTE | 2021-12-26 13:26 | PTOPEVAL1 ---
Assessment and note entered by Riley Bond, PT Evaluation Information Assessment Status Evaluation Diagnosis R shoulder pain Onset about 2 months ago Subjective Information Patient reports about 2 months ago she was feeling R shoulder pain and knee pain, she came to physical therapy for the knee pain and it is better, but she has not done anything for the shoulder. It mainly hurts with overhead reaching, prolonged activity like stirring a pot, and sleeping. Patient reports slight radiating symptoms down her deltoid and triceps. Patient is R handed. Reported Pain Level Pain Score 5: Self Report Assessment PT Clinical Summary Home is a 66 year old female coming into the clinic with R shoulder pain. She reports she is having trouble with sleeping on the R side, overhead lifting, and prolonged activity like stirring. She has weakness in the R scapula along with decreased active range of motion consistent with potential posterior capsule tightness. Patient given stretches to work on posture and muscular alignment along with strengthening exercises for her scapulas. Patient also given modalities for pain control. I believe skilled physical therapy can help her with her pain and shoulder issues. Plan of Care Interventions Electrical Stimulation,Hot Pack/Cold Pack,Manual Therapy,Neuro Re-education,Patient/Caregiver Education,Therapeutic Activities,Therapeutic Exercise,Ultrasound Other Interventions taping PT Services Indicated Yes Treatment Frequency and 1-2x/wk for 3 weeks Duration These treatments will address the objective and functional deficits as defined above. The patient will be advanced safely and appropriately in order for the patient to progress towards his/her prior level of function. Additional exercises will be introduced and as well as a comprehensive home exercise program upon discharge, if needed, ?to ensure carryover of functional gains achieved in the clinic. This treatment plan has been reviewed and agreement upon by the patient.
--- NOTE | 2022-01-18 09:55 | PTOPREEVAL ---
Assessment and note entered by Riley Bond, PT Evaluation Information Assessment Status Re-evaluation Diagnosis R shoulder pain Onset about 3 months ago Subjective Information Patient reports that the pain in her joint has gone away, but still having pain in the arm with lifting and stirring. She is able to sleep a little bit better, but still not sleeping on the R side. Reports has been doing her exercises and working on observing her posture. Home has been coming to physical therapy for 4 visits so far starting on . she reports no pain in her R shoulder joint, but still has pain in her upper arm with cooking activities. She shows improved range of motion and scapular strength. I believe physical therapy will still help the patient to reduce her pain with cooking activities through strengthening and manual therapy along with modalities as needed. These treatments will address the objective and functional deficits as defined above. The patient will be advanced safely and appropriately in order for the patient to progress towards his/her prior level of function. Additional exercises will be introduced and as well as a comprehensive home exercise program upon discharge, if needed, ?to ensure carryover of functional gains achieved in the clinic. This treatment plan has been reviewed and agreement upon by the patient.
--- NOTE | 2022-02-09 16:16 | PTOPDC ---
Assessment and note entered by Riley Bond, PT Evaluation Information Assessment Status Discharge Diagnosis R shoulder pain Onset about 4 months ago Subjective Information Patient reports overall improvement, and no more pain in the R upper arm, but going back to pain in her shoulder capsule with reaching behind her head in either external or internal rotation. Reported Pain Level Pain Score 0: Self Report Additional Pain Score Comments 5-6/10 pain with reaching back to brush her hair Assessment PT Clinical Summary Home is a 66 year old female coming to the clinic for R shoulder pain. Her initial evaluation was on 12/26/21 and she attended 8 sessions going from R shoulder pain to no pain in the shoulder, but pain in the bicep, back to pain in the shoulder with end range internal and external rotation. At this time I think it would be prudent to have the patient go back to the doctor and if warranted recommend an MRI to see if there would be rotator cuff injury. Patient still has a tight posterior shoulder capsule. Patient has exercises to work on stretching out the capsule. Plan of Care PT Services Indicated No Treatment Frequency and discharged from skilled physical therapy. Duration
== END 2022-02-10 08:09 | disposition home or self-care (01) ==
LOC: ANHPT 15:30
PROVIDERS: PCP Family Medicine; Visit Provider Family Medicine
DX: M25.511 Pain in right shoulder (principal); M19.011 Primary osteoarthritis, right shoulder
CPT/HCPCS: 97014; 97110; 97140; 97161; 97530; G0283

== ENCOUNTER 2022-06-15 08:58 | Outpatient (CLI) | payer MEDICARE, MEDICAID, SELFPAY ==
[2022-06-15 10:03] LABS: Basophils Percent Auto 0.5 % (0.2-1.2); Eosinophils Absolute Auto 0.2 K/mm3 (0-0.3); Eosinophils Percent Auto 3.7 % (0-4.4); Hematocrit 37.9 % (37.0-47.0); Hemoglobin 12.3 g/dL (12.0-15.0); Immature Granulocyte Absolute 0.01 K/mm3 (0.00-0.031); Immature Granulocyte Percent A 0.2 % (0-0.5); Lymphocytes Absolute Auto 2.12 K/mm3 (0.9-3.2); Lymphocytes Percent Auto 37.1 % (18.3-44.2); Mean Corpuscular HGB Conc 32.5 g/dl (32-36); Mean Corpuscular Hemoglobin 29.1 pg (26-34); Mean Corpuscular Volume 89.8 fl (80-100); Mean Platelet Volume 10.9 fl (7.4-10.4); Monocytes Absolute Auto 0.5 K/mm3 (0.1-0.6); Monocytes Percent Auto 7.9 % (2.6-8.5); Neutrophils Absolute Auto 2.9 K/mm3 (1.3-6.7); Neutrophils Percent Auto 50.6 % (45.5-73.1); Platelet Count Result 285 k/mm3 (150-375); Red Blood Count 4.22 M/mm3 (4.2-5.4); Red Cell Distribution Width 12.4 % (11.5-14.5); White Blood Count 5.7 K/mm3 (4.5-10.0)
[2022-06-15 10:05] LABS: Alanine Aminotransferase 23 U/L (6-35); Albumin Level 4.4 g/dL (3.5-5.1); Alkaline Phosphatase 80 U/L (38-126); Anion Gap 7 mmol/L (8-16); Aspartate Amino Transferase 27 U/L (14-36); Bilirubin,Total 0.5 mg/dL (0.2-1.3); Blood Urea Nitrogen 11 mg/dL (7-17); Calcium 9.1 mg/dL (8.4-10.2); Carbon Dioxide 29 mmol/L (22-30); Chloride 103 mmol/L (98-107); Cholesterol 145 mg/dL (0-200); Estimated Glomerular Filt Rate > 60; Glucose 92 mg/dL (65-110); HDL Direct 55 mg/dL; Potassium 4.4 mmol/L (3.4-5.0); Sodium 139 mmol/L (137-145); Triglycerides 100 mg/dL (<150)
[2022-06-15 10:16] LABS: LDL Cholesterol Direct 66 mg/dL
[2022-06-15 10:45] LABS: Free T4 Free Thyroxine 1.08 ng/mL (0.78-2.19); Vitamin D 25 Hydroxy 45.2 ng/mL
[2022-06-21 04:20] LABS: Triiodothyronine T3 Free 3.4 pg/mL (2.3-4.2)
== END 2022-06-15 08:59 | disposition home or self-care (01) ==
PROVIDERS: PCP Family Medicine; Visit Provider Family Medicine
DX: M62.81 Muscle weakness (generalized) (principal); E55.9 Vitamin D deficiency, unspecified; I10 Essential (primary) hypertension; E03.9 Hypothyroidism, unspecified; E78.5 Hyperlipidemia, unspecified; D64.9 Anemia, unspecified
CPT/HCPCS: 36415; 80053; 80061; 82306; 84439; 84443; 84481; 85025

== ENCOUNTER 2023-07-13 07:31 | Outpatient (CLI) | payer MEDICARE, MEDICAID, SELFPAY ==
[2023-07-13 08:17] LABS: Basophils Percent Auto 0.5 % (0.2-1.2); Eosinophils Absolute Auto 0.3 K/mm3 (0-0.3); Eosinophils Percent Auto 4.9 % (0-4.4); Hematocrit 38.6 % (37.0-47.0); Hemoglobin 12.5 g/dL (12.0-15.0); Immature Granulocyte Absolute 0.01 K/mm3 (0.00-0.031); Immature Granulocyte Percent A 0.2 % (0-0.5); Lymphocytes Absolute Auto 1.97 K/mm3 (0.9-3.2); Mean Corpuscular HGB Conc 32.4 g/dl (32-36); Mean Corpuscular Hemoglobin 29.2 pg (26-34); Mean Corpuscular Volume 90.2 fl (80-100); Mean Platelet Volume 10.4 fl (7.4-10.4); Monocytes Absolute Auto 0.6 K/mm3 (0.1-0.6); Monocytes Percent Auto 9.4 % (2.6-8.5); Neutrophils Absolute Auto 3.3 K/mm3 (1.3-6.7); Platelet Count Result 286 k/mm3 (150-375); Red Blood Count 4.28 M/mm3 (4.2-5.4); White Blood Count 6.2 K/mm3 (4.5-10.0)
[2023-07-13 08:31] LABS: Alanine Aminotransferase 22 U/L (6-35); Albumin Level 4.2 g/dL (3.5-5.1); Alkaline Phosphatase 77 U/L (38-126); Anion Gap 4 mmol/L (4-12); Aspartate Amino Transferase 25 U/L (14-36); Bilirubin,Total 0.5 mg/dL (0.2-1.3); Blood Urea Nitrogen 12 mg/dL (7-17); Carbon Dioxide 27 mmol/L (22-30); Chloride 107 mmol/L (98-107); Cholesterol 143 mg/dL (0-200); Estimated Glomerular Filt Rate > 60; Glucose 96 mg/dL (65-110); HDL Direct 49 mg/dL; Potassium 4.4 mmol/L (3.4-5.0); Sodium 138 mmol/L (137-145); Triglycerides 130 mg/dL (<150)
[2023-07-13 08:42] LABS: LDL Cholesterol Direct 69 mg/dL
[2023-07-13 10:56] LABS: Hemoglobin A1C 5.4 % (<5.7)
== END 2023-07-13 07:32 | disposition home or self-care (01) ==
PROVIDERS: PCP Family Medicine; Visit Provider Family Medicine
DX: I10 Essential (primary) hypertension (principal); E78.5 Hyperlipidemia, unspecified; R73.01 Impaired fasting glucose
CPT/HCPCS: 36415; 80053; 80061; 83036; 85025

== ENCOUNTER 2024-01-13 09:00 | Emergency (ER) | payer MEDICARE, MEDICAID, SELFPAY ==
--- NOTE | ~2024-01-13 | XR_ITS ---
EXAMINATION: XR knee LT 3V DATE: 01/13/2024 10:50 INDICATION: Left calf pain. TECHNIQUE: 3 views of the left knee were obtained. COMPARISON: None. FINDINGS: Bone alignment is normal. No fracture. There is mild tricompartmental osteoarthritis. No kn ee joint effusion. IMPRESSION: 1. Mild left knee osteoarthritis. Reviewed, dictated and finalized at location A. STRAIGHTENER
--- NOTE | ~2024-01-13 | XR_ITS ---
EXAMINATION: XR ankle LT min 3V DATE: 01/13/2024 10:50 INDICATION: Left ankle pain. TECHNIQUE: 4 views of left ankle were obtained. COMPARISON: None. FINDINGS: Alignment is normal. No fracture. There is mild osteoarthritis of talonavicular joint. Ther e is an osteochondral lesion of medial talar dome. There are enthesophytes at the posterior and plant ar aspects of calcaneal tuberosity. IMPRESSION: 1. Polyarticular osteoarthritis. Reviewed, dictated and finalized at location A. NT FITTINGS MAKER
--- NOTE | ~2024-01-13 | US_ITS ---
EXAMINATION: US venous doppler [facility] DATE: 01/13/2024 11:11 INDICATION: Left calf pain. TECHNIQUE: Grayscale ultrasound images without and with compression and Doppler ultrasound images of the left lower extremity veins were obtained. COMPARISON: None. FINDINGS: The visualized portions of left common femoral vein, profunda (deep) femoral vein, femoral vein, popl iteal vein, peroneal veins, posterior tibial veins, and greater saphenous vein outflow are patent. IMPRESSION: 1. No deep venous thrombosis. Reviewed, dictated and finalized at location A. DRIVER
[2024-01-13 09:11] VITALS: BP 164/78; PULSE 66; RESP 18; TEMP 36.4; O2SAT 100
--- NOTE | 2024-01-13 10:46 | PC.NURSE ---
Pt to U/S and XRAY via w/c at this time.
[2024-01-13] MEDS: dexAMETHasone SOD PHOS INJ 10 MG/ML 1 ML VIAL IV PUSH (11:16)
[2024-01-13] MEDS: FAMOTIDINE 20 MG/2 ML VIAL 40 MG IV PUSH (11:19)
[2024-01-13] MEDS: diphenhydrAMINE HCl INJ 50 MG/ML VIAL 25 MG IV PUSH (11:21)
[2024-01-13] MEDS: ACETAMINOPHEN 500 MG TABLET 1000 MG PO (11:23)
--- NOTE | 2024-01-13 11:23 | ED.GENADULT ---
HPI - General Adult General Chief complaint: Allergic Reaction Stated complaint: swollen eyes Time Seen by Provider: 01/13/24 10:12 History of Present Illness HPI narrative: This is a pleasant 68-year-old female presenting 2 complaints. First complaint is itching around her right eye. She developed itching around her right eye and hives over her anterior chest. She has had this happen past. No known allergens or new exposures. Patient does not have any throat swelling, difficulty breathing, nausea vomiting or diarrhea. No history of anaphylaxis. Second complaint is left calf pain. Patient says her left calf has been hurting. She does not note any swelling. No history of DVT or PE. She has not taken anything for pain control. No trauma Related Data Home Medications Medication Instructions Recorded Confirmed aspirin 81 mg tablet,delayed 81 mg PO DAILY 04/22/19 07/22/19 release (Adult Aspirin Regimen) losartan 25 mg tablet 25 mg PO DAILY 04/22/19 07/22/19 pravastatin 20 mg tablet 20 mg PO DAILY 04/22/19 07/22/19 carvedilol 3.125 mg tablet 6.25 mg PO Q12H 07/22/19 07/22/19 Allergies Allergy/AdvReac Type Severity Reaction Status Date / Time No Known Allergies Allergy Verified 01/13/24 09:07 [facility] Past Medical History Medical History Arthritis Dyslipidemia Family history of early CAD Hyperlipemia Hypertension Obesity Social History Social History Smoking status: Never smoker Alcohol intake: never Gender identity (if verbalized by the patient): Female Exam Narrative: APPEARANCE: No apparent distress. Head: Redness and erythema around the right eye, no pain with extraocular eye movements, no cellulitic changes, no swelling of the lips tongue or uvula EYES: EOMI, NOSE: Atraumatic NECK: Trachea midline no stridor RESPIRATORY: No increased rate of breathing clear to auscultation CARDIOVASCULAR: RRR, ABDOMINAL: Non-distended soft nontender no guarding rebound MUSCULOSKELETAl: focal exam of the left lower extremity revealed no swelling or edema. Pulses are +2 in the foot. Sensation and motor function intact. No overlying skin changes or cellulitic changes. NEURO: Alert. Moving 4/4 extremities SKIN:: Redness around the right eye, hives over the anterior chest PSYCHIATRIC: Normal affect Course Vital Signs Vital signs: Vital Signs Oxygen Delivery Room Air 01/13/24 09:07 Temperature 97.6 F 01/13/24 09:11 Pulse Rate 66 01/13/24 09:11 Respiratory Rate 18 01/13/24 09:11 Blood Pressure 164/78 H 01/13/24 09:11 Pulse Oximetry 100 01/13/24 09:11 Oxygen Delivery Room Air 01/13/24 09:07 Medical Decision Making MDM Narrative Medical decision making narrative: -Course: 68-year-old female presenting with a cutaneous allergic reaction. Treated with dexamethasone his own Benadryl and Pepcid. No evidence of anaphylaxis at this time. No known trigger Second complaint is left calf pain. X-rays of the knee and ankle showed arthritis. Venous ultrasound negative for DVT. Patient treated with Tylenol and discharged primary care follow-up. -DDX includes but is not limited to: Allergic reaction, anaphylaxis, muscle strain, DVT, arthritis -Independent interpretation of studies: X-ray showed arthritis. Venous ultrasound negative. -Interventions: Dexamethasone, Benadryl, Pepcid, Tylenol -Shared decision making / Disposition: Discharge Vital Signs Vital Signs: Vital Signs Oxygen Delivery Room Air 01/13/24 09:07 Temperature 97.6 F 01/13/24 09:11 Pulse Rate 66 01/13/24 09:11 Respiratory Rate 18 01/13/24 09:11 Blood Pressure 164/78 H 01/13/24 09:11 Pulse Oximetry 100 01/13/24 09:11 Oxygen Delivery Room Air 01/13/24 09:07 Discharge Plan Discharge Clinical Impression: Allergic reaction Patient Disposition: Home, Self-Care Condition: Stable Instructions: Antibiotic Form, Allergies (ED), Arthritis (ED) Additional Instructions: Your seen emergency department for allergic reaction. Please use [id number] Benadryl for itching. Please use Tylenol for your calf pain. Your x-rays showed that you have arthritis of the knee ankle. You do not have a blood clot. You can follow-up with your primary care physician for further management. Prescriptions: New acetaminophen 500 mg tablet 1,000 mg PO TID PRN (Reason: hugo) 7 Days Qty: 42 0RF diphenhydramine HCl [Benadryl] 25 mg capsule 25 mg PO TID PRN (Reason: allergic reaction) Qty: 30 0RF No Action pravastatin 20 mg tablet 20 mg PO DAILY losartan 25 mg tablet 25 mg PO DAILY aspirin [Adult Aspirin Regimen] 81 mg tablet,delayed release (DR/EC) 81 mg PO DAILY carvedilol 3.125 mg tablet 6.25 mg PO Q12H Rx Instructions: must administer with a meal/food albuterol sulfate 90 mcg/actuation HFA aerosol inhaler 2 puff INHALATION QID PRN (Reason: shortness of breath or wheezing) Qty: 6.7 0RF nitrofurantoin monohyd/m-cryst [Macrobid] 100 mg capsule 100 mg PO Q12H 5 Days Qty: 10 0RF Rx Instructions: must administer with a meal/food meloxicam 7.5 mg tablet 7.5 mg PO DAILY Qty: 14 0RF lidocaine 5 % adhesive patch,medicated 1 patch topical DAILY Qty: 1 0RF Rx Instructions: leave on most painful area for up to 12 hrs, dispense one box metaxalone [Skelaxin] 800 mg tablet 800 mg PO TID PRN (Reason: muscle pain) Qty: 7 0RF acetaminophen [Tylenol Arthritis Pain] 650 mg tablet extended release 650 mg PO Q12H PRN (Reason: pain) Qty: 10 0RF Follow-up/Referrals: Aubrey Dover MD [Primary Care Provider] - 1 Week
[2024-01-13 11:25] VITALS: BP 163/76; PULSE 71; RESP 17; O2SAT 100
== END 2024-01-13 12:00 | disposition home or self-care (01) ==
PROVIDERS: Emergency Provider Emergency Medicine; PCP Family Medicine
DX: T78.40XA Allergy, unspecified, initial encounter (principal); M79.662 Pain in left lower leg; I10 Essential (primary) hypertension; E78.5 Hyperlipidemia, unspecified; E66.9 Obesity, unspecified; Z68.33 Body mass index [BMI] 33.0-33.9, adult; Z79.82 Long term (current) use of aspirin; Z79.899 Other long term (current) drug therapy; M17.12 Unilateral primary osteoarthritis, left knee; M19.072 Primary osteoarthritis, left ankle and foot; X58.XXXA Exposure to other specified factors, initial encounter
CPT/HCPCS: 73562; 73610; 93971; 96374; 96375; 99284; A9270; J1100; J1200

== ENCOUNTER 2024-01-28 07:57 | Outpatient (CLI) | payer MEDICARE, MEDICAID, SELFPAY ==
[2024-01-28 08:57] LABS: Basophils Percent Auto 0.5 % (0.2-1.2); Eosinophils Absolute Auto 0.2 K/mm3 (0-0.3); Eosinophils Percent Auto 4.2 % (0-4.4); Hematocrit 38.1 % (37.0-47.0); Hemoglobin 12.3 g/dL (12.0-15.0); Immature Granulocyte Absolute 0.02 K/mm3 (0.00-0.031); Immature Granulocyte Percent A 0.3 % (0-0.5); Lymphocytes Absolute Auto 1.99 K/mm3 (0.9-3.2); Lymphocytes Percent Auto 34.7 % (18.3-44.2); Mean Corpuscular HGB Conc 32.3 g/dl (32-36); Mean Corpuscular Hemoglobin 29.2 pg (26-34); Mean Corpuscular Volume 90.5 fl (80-100); Mean Platelet Volume 10.3 fl (7.4-10.4); Monocytes Absolute Auto 0.5 K/mm3 (0.1-0.6); Monocytes Percent Auto 8.6 % (2.6-8.5); Neutrophils Percent Auto 51.7 % (45.5-73.1); Platelet Count Result 298 k/mm3 (150-375); Red Blood Count 4.21 M/mm3 (4.2-5.4); Red Cell Distribution Width 13.4 % (11.5-14.5); White Blood Count 5.7 K/mm3 (4.5-10.0)
[2024-01-28 11:26] LABS: Vitamin D 25 Hydroxy 50.3 ng/mL
[2024-01-28 11:33] LABS: Alanine Aminotransferase 17 U/L (6-35); Alkaline Phosphatase 72 U/L (38-126); Anion Gap 3 mmol/L (4-12); Aspartate Amino Transferase 22 U/L (14-36); Bilirubin,Total 0.4 mg/dL (0.2-1.3); Blood Urea Nitrogen 12 mg/dL (7-17); Calcium 8.9 mg/dL (8.4-10.2); Carbon Dioxide 28 mmol/L (22-30); Chloride 106 mmol/L (98-107); Cholesterol 149 mg/dL (0-200); Estimated Glomerular Filt Rate > 60; Glucose 95 mg/dL (65-110); HDL Direct 49 mg/dL; Potassium 4.3 mmol/L (3.4-5.0); Sodium 137 mmol/L (137-145); Triglycerides 159 mg/dL (<150)
[2024-01-28 11:43] LABS: LDL Cholesterol Direct 62 mg/dL
[2024-01-28 12:39] LABS: Folic Acid 10.4 ng/mL (2.76->20)
== END 2024-01-28 07:58 | disposition home or self-care (01) ==
LOC: ANHLAB 08:01
PROVIDERS: PCP Family Medicine; Visit Provider Family Medicine
DX: D51.3 Other dietary vitamin B12 deficiency anemia (principal); E55.9 Vitamin D deficiency, unspecified; E66.9 Obesity, unspecified; E78.5 Hyperlipidemia, unspecified; I10 Essential (primary) hypertension
CPT/HCPCS: 36415; 80053; 80061; 82306; 82607; 82746; 84443; 85025

== ENCOUNTER 2024-06-02 11:13 | Emergency (ER) | payer MEDICARE, MEDICAID, SELFPAY ==
--- NOTE | ~2024-06-02 | XR_ITS ---
3 VIEWS LUMBAR SPINE Ordering provider: Daniel Norman MD History: . fall, left hip/buttock pain X TODAY . Comparison: None. FINDINGS: VERTEBRAL BODIES: No visible fracture or subluxation. Degenerative changes of the spine. DISK SPACES: Slight narrowing of the disc L3-4 and L5-S1.. Facet Joint disease at the level of L4-L5 and L5-S1. SOFT TISSUES: Normal. IMPRESSION: No acute osseous abnormality lumbar spine. Reviewed, dictated and finalized at location A.
--- NOTE | ~2024-06-02 | XR_ITS ---
XR hip LT min 2V Ordering provider: Daniel Norman MD History: . fall, left hip/buttock pain X TODAY . Comparison: None. FINDINGS: BONES: No acute fracture or dislocation. HIP JOINT SPACES: Normal. PUBIC SYMPHYSIS: Normal. SOFT TISSUES: Normal. IMPRESSION: No acute osseous abnormality pelvis and left hip. Reviewed, dictated and finalized at location A.
--- NOTE | ~2024-06-02 | XR_ITS ---
XR chest 1V Ordering provider: Daniel Norman MD History: 68 years Female with . fall, presyncope X TODAY . Comparison: September 13, 2021 FINDINGS: MEDIASTINUM: The cardiac silhouette is not enlarged. LUNGS: No infiltrates, effusions or pneumothorax. Slightly prominent markings in the lower lobes. OTHER: No free air under the diaphragm. Degenerative changes of the spine. IMPRESSION: No acute cardiopulmonary pathology. Reviewed, dictated and finalized at location A.
[2024-06-02 11:26] VITALS: BP 172/86; PULSE 73; RESP 18; TEMP 36.4; O2SAT 100
--- OUTSIDE RECORDS SUMMARY | 2024-06-02 13:02 | XMS_ITS | Data Portability ---
Author Organization [facility], Main Office Address [address] [place] [address] Care Team Providers Care Creel Cleaner Name Role Phone TAJ DRAKE Primary Care Provider Assessment Encounter Date Assessment Date Assessment LastModified by Organization Details LastModified Time 01/22/2024 01/22/2024 68 yo F with - WELL ADULT VISIT - HTN - HLD - VIT D DEFICIENCY - VEGETARIAN - OBESITY I D/w pt & her daughter about her findings, recent labs & imagines and further plan of care. Will do routine labs. Meds as directed. Diet and exercise explained in detail. BP diary education given. Cont f/u with Cardio at [place] as per schedule. Cont f/u with Ophtho as per schedule. HM: WWE - S/p hysterectomy. Pt declined. Mammo - 2 yrs ago. Ordered. DEXA - Ordered. Colonoscopy - Pt declined. Cologuard ordered. Flu - Pt declined. Tdap - Pt declined. Pneumo - Pt declined. Shingrix - At pharmacy/HD. F/u in 2-3 weeks. Annual labs in 02/05. Not available 01/22/2024 12:33:15 03/25/2024 03/25/2024 68 yo F with - HTN - HLD - SEASONAL ALLERGIC RHINITIS - VIT D DEFICIENCY - VIT B12 DEFICIENCY - VEGETARIAN - OBESITY I Annual labs: 01/28/24. D/w pt & her daughter about her findings, recent labs & imagines and further plan of care. All meds verified with pt. Meds as directed. Diet and exercise explained in detail. BP diary education given. Fall risk precautions given. Cont f/u with Cardio at [place] as per schedule. Cont f/u with Ophtho as per schedule. HM: WWE - S/p hysterectomy. Pt declined. Mammo - 2 yrs ago. Ordered. DEXA - Ordered. Colonoscopy - Pt declined. Cologuard ordered. Flu - Pt declined. Tdap - Pt declined. Pneumo - Pt declined. Shingrix - At pharmacy/HD. F/u in 3-6 months. Annual labs in 02/05. [email or web address] Not available 03/25/2024 11:26:15 Plan of Treatment Reminders Order Date Submit Date Provider Last Modified By Organization Details Last Modified Time Details Appointments Follow Up 15 2024 10:15A Luz Elena Drake MD Not available Not available Not available Lab CBC w/ auto diff 2023 [facility] (Lab), [address] [place], [address], 01/28/2024 13:19:19 CMP, serum or plasma [address] (Lab), [address] [place], [address], 03/13/2024 14:23:06 urinalysi s complete, reflex culture [address] (Lab), [address] [place], [address], 03/13/2024 14:23:06 vitamin B12 + folate, serum or blood [address] (Lab), [address] [place], [address], 03/13/2024 14:23:07 lipid panel, serum [address] (Lab), [address] [place], [address], 03/13/2024 14:23:06 TSH, serum or plasma [address] (Lab), [address] [place], [address], 03/13/2024 14:23:06 glycohemo globin, total, blood [address] (Lab), [address] [place], [address], 03/13/2024 14:23:07 vitamin D, 25-hydrox y, total, serum [address] (Lab), [address] [place], [address], 03/13/2024 14:23:06 noninvasi ve colorecta l cancer DNA + occult blood screening , QL, stool 2023 024 [place] [address] [facility] (Cologuard Orders Only), [address], [address], [place], [address], 03/27/2024 15:56:51 Referral None recorded. Procedures None recorded. Surgeries None recorded. Imaging MAMMO, screening , bilateral [address], [address] [place] [address], [address], 02/05/2024 08:50:24 DEXA [address], [address] [place] [address], [address], 02/05/2024 08:50:25 Medication Orders Adult Low Dose Aspirin 81 mg tablet,de layed release 2024 025 [facility] [place], [address], 03/25/2024 11:18:49 carvedilo l 6.25 mg tablet 2024 025 [facility] [address] [place], [address], 03/25/2024 11:18:49 losartan 100 mg tablet 2024 025 [facility] [address] [facility], [place], [address], 03/25/2024 11:18:48 ergocalci ferol (vitamin D2) 1,250 mcg (50,000 unit) capsule 2024 025 [facility] [address] [place], [address], 03/25/2024 11:18:51 benzonata te 200 mg capsule 2024 025 [facility] [address] [place], [address], 03/25/2024 11:18:48 pravastat in 20 mg tablet 2024 025 [facility] [facility], [place], [address], 03/25/2024 11:18:51 fluticaso ne propionat e 50 mcg/actua tion nasal spray,herb pension 2024 025 [facility] [address] [place], [address], 03/25/2024 11:18:50 cetirizin e 10 mg tablet 2024 025 [facility] [address] [place], [address], 03/25/2024 11:18:52 Patient TargetsNo targets recorded. Patient Instructions Encounter Date Encounter Id Patient Instructions Last Modified By Organization Details Last Modified Time 01/22/2024 [id number] high blood pressure: care instructions [email or web address] Not available 01/22/2024 12:33:43 03/25/2024 [id number] high blood pressure: care instructions [email or web address] Not available 03/25/2024 11:10:50 Reason for Referral None Reported. Results Created Date Observation Date Name Description Value Unit Range Abnormal Flag Note LastModifiedBy Organization Detail LastModifiedTime Result Notes None recorded. Problems Name Problem SNOMED Code Status Onset Date Resolution Date Notes Provider Name and Address Organization Details Recorded Time Essential hypertension 53928786 Active 2001 Odalys Pereira RN null, [facility] 4 11:31:50 Hypercholester olemia 30393472 Active 2019 Odalys Pereira RN null, [facility] 4 11:35:16 Hypertensive disorder 33288445 Active 2023 Taj Drake MD [address], [address], [place], [address], [facility] 4 11:40:40 Hyperlipidemia 50218528 Active 2023 Taj Drake MD [address], [address], [place], [address], [facility] 11:40:43 Vitamin D deficiency 39697309 Active 2023 Taj Drake MD [address], [address], [place], [address], [facility] 4 11:40:47 Obesity 933019760 Active 2023 Taj Drake MD [address], [address], [place], [address], [facility] 4 11:40:59 Vegan's anemia 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 Active 2023 Taj Drake MD [address], [address], [place], [address], [facility] 4 11:41:06 Vitamin B12 deficiency (non anemic) 49859813 Active 2024 Taj Drake MD [address], [address], [place], [address], [facility] 5 10:51:36 Seasonal allergic rhinitis 682057339 Active 2024 Taj Drake MD [address] [facility] [address], [place], [address], [facility] 5 11:13:09 Cough 54185700 Active 2024 Taj Drake MD [address], [address], [place], [address], [facility] 5 11:14:40 Problem Notes None recorded. Medical Equipment None Reported. Allergies No known drug allergies Medications Name Sig Start Date Stop Date Status Note LastModified by Organization Details LastModified Time carvedilol 6.25 mg tablet Take 1 tablet twice a day by oral route as directed for 90 days. 2024 active by Aubrey Dover Not Available Not Available Not Available cetirizine 10 mg tablet Take 1 tablet every day by oral route as directed for 90 days. 2024 active Not Available Not Available Not Avai lable benzonatate 200 mg capsule Take 1 capsule every 8 hours by oral route as needed for 7 days. 2024 active Not Available Not Available Not Avai lable pravastatin 20 mg tablet Take 1 tablet every day by oral route at bedtime for 90 days. 2024 active Not Available Not Available Not Avai lable Baby Aspirin 81 mg chewable tablet Chew 1 tablet every day by oral route in the morning. active Not Available Not Available No t Available ergocalcife rol (vitamin D2) 1,250 mcg (50,000 unit) capsule Take 1 capsule every week by oral route as directed for 90 days. 2024 active Not Available Not Available Not Avai lable losartan 100 mg tablet Take 1 tablet every day by oral route in the morning for 90 days. 2024 active Not Available Not Available Not Avai lable fluticasone propionate 50 mcg/actuati on nasal spray,suspe nsion [place] 2 sprays every day by intranasa l route as directed for 90 days. active Not Available Not Available No t Available Adult Low Dose Aspirin 81 mg tablet,ramon yed release Take 1 tablet every day by oral route as directed for 90 days. 2024 active Not Available Not Available Not Avai lable Vitals Date Recorded Body height Body mass index (BMI) Body weight Body temperature Oxygen saturation Oxygen saturation in Arterial blood by Pulse oximetry Heart rate Systolic blood pressure Diastolic blood pressure Provider Name and Address Organization Details Last Updated DateTime 4 154.94 cm 32.6 kg/m2 86229.9 9 g 97.4 [degF] 99 % 99 % 62 /min 160 mm[Hg] 86 mm[Hg] Odalys Pereira RN [facility] 4 11:23:29 Date Recorded Body height Body mass index (BMI) Body weight Body temperature Oxygen saturation Oxygen saturation in Arterial blood by Pulse oximetry Heart rate Provider Name and Address Organization Details Last Updated DateTime 5 154.94 cm 33.1 kg/m2 14975.7 6 g 97.3 [degF] 96 % 96 % 68 /min Odalys Pereira RN [facility] 5 11:03:54 Date Recorded Systolic blood pressure Diastolic blood pressure Provider Name and Address Organization Details Last Updated DateTime 03/25/2024 146 mm[Hg] 86 mm[Hg] Taj Drake MD [address] [facility], [address], [address], [place] [facility] 03/25/2024 11:24:37 Social History Question Answer Notes LastModified by Organizat ion Details LastModified Time Tobacco Smoking Status Never Smoker Odalys Pereira RN [facility], [facility] 01/22/2024 11:37:27 What Is Your Level Of Alcohol Consumption? None [email or web address] Information not available 01/22/2024 What Is Your Level Of Caffeine Consumption? Occasional Information not available 01/22/2024 Do You Use Your Seat Belt Or Car Seat Routinely? Yes [email or web address] Information not available 01/22/2024 Do You Participate In Social Media? Yes [email or web address] Information not available 01/22/2024 Do You Feel Stressed (tense, Restless, Nervous, Or Anxious, Or Unable To Sleep At Night)? [id number] [email or web address] Information not available 01/22/2024 Do You Use Any Illicit Or Recreational Drugs? No [email or web address] Information not available 01/22/2024 Sex: Unknown Functional Status None recorded. Mental Status None recorded. Family History Relationship Description Onset Age of this Age Resolved Age Notes LastModified by Organization Details LastModified Time Mother Hypertensive disorder 60 74 Not available 01/21 11:32:54 Father Hypertensive disorder 60 75 [email or web address] Not available 01/21 11:33:50 Father Diabetes mellitus 75 [email or web address] Not available 01/21 11:34:24 Father Hypercholest [email or web address] Not available 01/21 11:36:11 Medical History No medical history recorded. Gynecological HistoryNo gynecological history recorded. Obstetrics History GPAL:G 0 P 0 0 0 0 Past Encounters Encounter ID Performer Location Encounter Start Date Encounter Closed Date Diagnosis/Indication Diagnosis SNOMED-CT Code Diagnosis ICD10 Code Diagnosis Note [id number] Taj Drake MD [address] [address] 01/22/2024 11:12:29 01/22/2024 12:37:52 Adult health examination 513509915 Z00.01 Hypertensive disorder 38 878612 I10 Hyperlipidemia 21875748 E78.5 Vitamin D deficiency 347 81068 E55.9 Vegan's anemia 964585549 D51.3 Obesity 036635487 E66.9 Screening mammography 24 772586 Z12.31 Postmenopausal state 764 61836 Z78.0 Screening for malignant neoplasm of colon 336304348 Z12.11 [id number] Taj Drake MD [address] [address] 03/25/2024 10:25:37 03/25/2024 11:23:20 Hypertensive disorder 28337242 I10 Hyperlipidemia 35134775 E78.5 Vitamin D deficiency 347 72573 E55.9 Vegan's anemia 716828821 D51.3 Obesity 926502428 E66.9 Vitamin B1 2 deficiency (non anemic) 86817456 E53.8 Seasonal a llergic rhinitis 610889924 J30.2 Cough 53588742 R05.9 Health Concerns Section Related Observation LastModified by Organization Detai ls LastModified Time None Recorded Concern Status LastModified by Organization Details LastModified Time None Recorded Advance Directives Directive None Recorded Payers Encounter Date Sequence Insurance Name Policy Number Policy Galeano Covered Member ID Galeano Member ID Guarantor Name 01/22/2024 1 [place] Drake [id number] Alona Drake 01/22/2024 2 [place] [facility] Alona Drake [id number] Alona Drake 03/25/2024 1 [place] Margieen R Drake [id number] Alona Drake 03/25/2024 2 [place] [facility] Alona Drake [id number] Alonajuany Drake Notes Date Note Type Note Provider Name and Address Organization Details Recorded Time 01/22/2024 text/html New pt visit:68 yo F is here with her daughter to establish her care. Pt was seeing PCP at [place] in the past.Doing overall well. Denies any new concern. Pt is not taking her meds regularly, she has not taken her BP meds yet. Pt is f/u with Cardio at [place] and everything is good as per them.PMH, FH and SH reviewed. Taj Drake MD [address], [address], [place], [address], [facility] 01/22/2024 12:37:06 03/25/2024 text/html Pt is here for f/u on her annual labs. Doing overall well. Denies any problem with meds. Denies any new concern. Pt's [id number] is an RN and she checks her BP at home and its good as per pt. Pt is f/u with Cardio at [place] and everything is good as per them. Taj Drake MD [address], [address], [place], [address], [facility] 03/25/2024 11:27:11 OBGyn Episode No OBEpisode recorded.
--- NOTE | 2024-06-02 13:08 | ECG_ITS ---
Test Date: 2024-06-02 13:15:44 Measurements Intervals [place] Rate: 61 P: 69 MO: 171 QRS: 60 QRSD: 91 T: 54 QT: 436 QTc: 441 Interpretive Statements SINUS RHYTHM NONSPECIFIC T-WAVE ABNORMALITY- ANTERIOR LEADS BASELINE ARTIFACT- I, II, III, AVR, AVL, AVF BORDERLINE ECG No previous ECG available for comparison Electronically Signed On 06-02-2024 13:37:45 CDT by Vinicius Chirinos D.O.
--- NOTE | 2024-06-02 13:21 | ED.FALL ---
HPI - Fall General Chief Complaint: Fall Stated Complaint: Fall-pain to head-left leg Time Seen by Provider: 06/02/24 12:39 History of Present Illness HPI Narrative: 68-year-old female with a past medical history including obesity, hypertension, hyperlipidemia, osteoarthritis. She presents to the emergency department chief complaint of presyncopal event with mild fall. 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 She states she felt lightheaded although sudden and tried to sit down and fell backwards striking her but left hip on the ground. Did not hit her head or lose consciousness. She was able to get up unassisted. She states she has been dealing with left knee pain for last several days responsive to ibuprofen at home. States that she has been having jaw pain chronically. Denies any chest pain shortness a breath. No headache or vision changes. No nausea or vomiting. Denies any significant injuries. She was concerned and wanted to get evaluated. No history of cardiac disease to her knowledge. She was otherwise in her normal state of health. She is ambulatory without any weakness, sensory deficits, no incontinence issues. No midline back pain. Does not take any blood thinners. Related Data Home Medications ?Medication ?Instructions ?Recorded ?Confirmed ?Last Taken ?Type aspirin 81 mg tablet,delayed 81 mg PO DAILY 04/22/19 07/22/19 Unknown History release (Adult Aspirin Regimen) losartan 25 mg tablet 25 mg PO DAILY 04/22/19 07/22/19 Unknown History pravastatin 20 mg tablet 20 mg PO DAILY 04/22/19 07/22/19 Unknown History carvedilol 3.125 mg tablet 6.25 mg PO Q12H 07/22/19 07/22/19 Unknown History Allergies Allergy/AdvReac Type Severity Reaction Status Date / Time No Known Allergies Allergy Verified 06/02/24 11:14 Review of Systems Review of Systems: As reviewed [facility] Past Medical History Medical History Arthritis Hyperlipemia Obesity Family history of early CAD Dyslipidemia Hypertension Social History Social History Smoking status: Never smoker Alcohol intake: never Gender identity (if verbalized by the patient): Female Exam Narrative: GENERAL: [Well-appearing, well-nourished, and in no acute distress.] HEAD: [Normocephalic, atraumatic.] EYES: [PERRLA and EOMI.] ENT: Nares clear, no rhinorrhea or epistaxis. Mucous membranes moist. NECK: Supple. CHEST: [Clear to auscultation. No respiratory distress.] HEART: [Regular rate and rhythm]. No murmur heard. [Normal peripheral pulses.] ABDOMEN: [Soft, nondistended], [nontender], [No rigidity or guarding] EXTREMITIES: Normal range of motion. [No edema.] Able to flex and extend at the hip, knee and ankles. Plantar dorsiflexion 5/5. Ambulatory without any assistance. SKIN: Warm, dry, no rash. NEURO: [No focal deficits]. Alert and oriented [x3.] PSYCH: [Normal mood and affect.] Course Vital Signs Vital signs: Vital Signs Temperature 36.4 C L 06/02/24 11:26 Pulse Rate 73 06/02/24 11:26 Respiratory Rate 18 06/02/24 11:26 Blood Pressure 172/86 H 06/02/24 11:26 Pulse Oximetry 100 06/02/24 11:26 Oxygen Delivery Room Air 06/02/24 11:26 Temperature 36.4 C L 06/02/24 11:26 Pulse Rate 73 06/02/24 11:26 Respiratory Rate 18 06/02/24 11:26 Blood Pressure 172/86 H 06/02/24 11:26 Pulse Oximetry 100 06/02/24 11:26 Oxygen Delivery Room Air 06/02/24 11:26 MDM - Fall MDM Narrative Medical decision making narrative: 68-year-old female with history of obesity, hypertension, hyperlipidemia. She presents with chief complaint of a presyncopal event at work while she was making sandwiches. She felt lightheaded and tried to sit down but missed the stool and landed backwards hitting her left hip and tailbone against the wall and slid to the floor. Did not hit her head or lose consciousness. She has no symptoms at this time aside from some mild pain in her left hip. She has no neuropathy or sensory deficits. Ambulatory without any assistance. EHL FHL with full strength bilaterally. No traumatic findings on her examination. Strong pulses throughout. Given her age and risk factors concern for her presyncopal event likely vasovagal versus orthostatic in nature however possibility of cardiac-related syncope also on the differential. Low suspicion traumatic injury as the cause. She states she has been doing with some left knee pain for last several days responsive to ibuprofen. She is otherwise well-appearing. Cardiac workup was ordered including CBC, CMP, x-ray of the chest, troponin, EKG. X-rays of her lumbar spine and hip were obtained as well secondary to the minor trauma. She was provided Toradol and re-evaluated frequently. Patient had improvement upon re-evaluations. Workup shows no leukocytosis or anemia. Negative troponin. Normal electrolytes and renal function. Normal LFTs. X-rays shows no acute pathology or fractures, dislocations. No acute cardiopulmonary disease on the chest x-ray. Patient is safe for discharge home at this time. She is hemodynamically stable and observed in the ED for numerous hours. Patient comfortable with going home. Medical Records Attestation: I reviewed the patient's medical records. Lab Data Attestation: I reviewed the patient's lab results. 06/02/24 13:37 06/02/24 13:37 Labs: Lab Results 06/02/24 Range/Units 13:37 WBC 7.0 (4.5-10.0) K/mm3 RBC 4.48 (4.2-5.4) M/mm3 Hgb 13.1 (12.0-15.0) g/dL Hct 40.7 (37.0-47.0) % MCV 90.8 (80-100) fl MCH 29.2 (26-34) pg MCHC 32.2 (32-36) g/dl RDW 12.5 (11.5-14.5) % Plt Count 304 (150-375) k/mm3 MPV 10.3 (7.4-10.4) fl Immature Gran % (Auto) 0.1 (0-0.5) % Neut % (Auto) 61.4 (45.5-73.1) % Lymph % (Auto) 27.3 (18.3-44.2) % [place] % (Auto) 7.2 (2.6-8.5) % Eos % (Auto) 3.6 (0-4.4) % Baso % (Auto) 0.4 (0.2-1.2) % Lymph # (Auto) 1.92 (0.9-3.2) K/mm3 [place] # (Auto) 0.5 (0.1-0.6) K/mm3 Eos # (Auto) 0.3 (0-0.3) K/mm3 Baso # (Auto) 0.0 (0.0-0.1) K/mm3 Abs Immat Gran (auto) 0.01 (0.00-0.031) K/mm3 Absolute Neuts (auto) 4.3 (1.3-6.7) K/mm3 Absolute Nucleated RBC 0.000 (0.0-0.012) K/mm3 Nucleated RBC % 0.0 (0.0-0.2) % Sodium 141 (137-145) mmol/L Potassium 4.5 (3.4-5.0) mmol/L Chloride 105 (98-107) mmol/L Carbon Dioxide 28 (22-30) mmol/L Anion Gap 8 (4-12) mmol/L BUN 12 (7-17) mg/dL Creatinine 0.65 L (0.7-1.0) mg/dL Estim Creat Clear Calc 70 ml/min Estimated GFR > 60 (59 - ) Glucose 99 (65-110) mg/dL Calcium 9.6 (8.4-10.2) mg/dL Troponin I < 0.012 (0.000-0.034) ng/mL Imaging Data Attestation: I personally reviewed and interpreted this imaging study as follows: My impression: Impressions Hip X-Ray 06/02/24 14:06 IMPRESSION: No acute osseous abnormality pelvis and left hip. Lumbar Spine X-Ray 06/02/24 14:08 IMPRESSION: No acute osseous abnormality lumbar spine. Chest X-Ray 06/02/24 14:11 IMPRESSION: No acute cardiopulmonary pathology. ECG Data EKG #1: Attestation: I personally reviewed and interpreted this ECG as follows: ECG completion date: 06/02/24 ECG completion time: 13:15 Prior ECG tracings: not available for review Interpretation: Normal sinus rhythm, no ST segment elevations, depressions or inversions. QTC 441, QRS 91, WA 171. No previous EKG for comparison. Sinus rhythm final interpretation. Discharge Plan Discharge Clinical Impression: Pre-syncope, Fall, Hip pain, left Patient Disposition: Home Condition: Stable Instructions: Antibiotic Form Additional Instructions: Your laboratory studies and cardiac workup are all normal. Take Tylenol and ibuprofen for any aches or pains. Follow-up with your regular doctor on outpatient visit at the next 3-5 days. Return with any new or worsening concerns. Patient Language: Lao Prescriptions: No Action pravastatin 20 mg tablet 20 mg PO DAILY losartan 25 mg tablet 25 mg PO DAILY aspirin [Adult Aspirin Regimen] 81 mg tablet,delayed release (DR/EC) 81 mg PO DAILY carvedilol 3.125 mg tablet 6.25 mg PO Q12H Rx Instructions: must administer with a meal/food albuterol sulfate 90 mcg/actuation HFA aerosol inhaler 2 puff INHALATION QID PRN (Reason: shortness of breath or wheezing) Qty: 6.7 0RF nitrofurantoin monohyd/m-cryst [Macrobid] 100 mg capsule 100 mg PO Q12H 5 Days Qty: 10 0RF Rx Instructions: must administer with a meal/food meloxicam 7.5 mg tablet 7.5 mg PO DAILY Qty: 14 0RF lidocaine 5 % adhesive patch,medicated 1 patch topical DAILY Qty: 1 0RF Rx Instructions: leave on most painful area for up to 12 hrs, dispense one box metaxalone [Skelaxin] 800 mg tablet 800 mg PO TID PRN (Reason: muscle pain) Qty: 7 0RF acetaminophen [Tylenol Arthritis Pain] 650 mg tablet extended release 650 mg PO Q12H PRN (Reason: pain) Qty: 10 0RF acetaminophen 500 mg tablet 1,000 mg PO TID PRN (Reason: hugo) 7 Days Qty: 42 0RF diphenhydramine HCl [Benadryl] 25 mg capsule 25 mg PO TID PRN (Reason: allergic reaction) Qty: 30 0RF Follow-up/Referrals: Vidal,MD Taj [Primary Care Provider] - Time of Disposition: 17:04
[2024-06-02] MEDS: KETOROLAC 15 MG/ML VIAL (*BKC) IV PUSH (13:34)
[2024-06-02 13:50] LABS: Basophils Percent Auto 0.4 % (0.2-1.2); Eosinophils Absolute Auto 0.3 K/mm3 (0-0.3); Eosinophils Percent Auto 3.6 % (0-4.4); Hematocrit 40.7 % (37.0-47.0); Hemoglobin 13.1 g/dL (12.0-15.0); Immature Granulocyte Absolute 0.01 K/mm3 (0.00-0.031); Immature Granulocyte Percent A 0.1 % (0-0.5); Lymphocytes Absolute Auto 1.92 K/mm3 (0.9-3.2); Lymphocytes Percent Auto 27.3 % (18.3-44.2); Mean Corpuscular HGB Conc 32.2 g/dl (32-36); Mean Corpuscular Hemoglobin 29.2 pg (26-34); Mean Corpuscular Volume 90.8 fl (80-100); Mean Platelet Volume 10.3 fl (7.4-10.4); Monocytes Absolute Auto 0.5 K/mm3 (0.1-0.6); Monocytes Percent Auto 7.2 % (2.6-8.5); Neutrophils Absolute Auto 4.3 K/mm3 (1.3-6.7); Neutrophils Percent Auto 61.4 % (45.5-73.1); Platelet Count Result 304 k/mm3 (150-375); Red Blood Count 4.48 M/mm3 (4.2-5.4); Red Cell Distribution Width 12.5 % (11.5-14.5)
[2024-06-02 14:01] LABS: Anion Gap 8 mmol/L (4-12); Blood Urea Nitrogen 12 mg/dL (7-17); Calcium 9.6 mg/dL (8.4-10.2); Carbon Dioxide 28 mmol/L (22-30); Chloride 105 mmol/L (98-107); Estimated CRCL calculation 70 ml/min; Estimated Glomerular Filt Rate > 60; Glucose 99 mg/dL (65-110); Potassium 4.5 mmol/L (3.4-5.0); Sodium 141 mmol/L (137-145)
[2024-06-02 14:11] LABS: Troponin I < 0.012 ng/mL (0.000-0.034)
[2024-06-02 17:15] VITALS: BP 207/75; PULSE 60; RESP 16; O2SAT 95
--- NOTE | 2024-06-02 17:20 | PC.NURSE ---
Dr. Norman notified of pt. hypertension. Pt. denies any CP. Per Dr. Norman, pt. ok to be d/c. Pt. following up with PCP today.
== END 2024-06-02 17:26 | disposition home or self-care (01) ==
PROVIDERS: Emergency Provider Student in an Organized Health Care Education/Training Program; PCP Family Medicine
DX: R55 Syncope and collapse (principal); S79.912A Unspecified injury of left hip, initial encounter; I10 Essential (primary) hypertension; E78.5 Hyperlipidemia, unspecified; E66.9 Obesity, unspecified; Z68.34 Body mass index [BMI] 34.0-34.9, adult; M19.90 Unspecified osteoarthritis, unspecified site; Z79.82 Long term (current) use of aspirin; Z79.899 Other long term (current) drug therapy; W01.198A Fall on same level from slipping, tripping and stumbling with subsequent striking against other object, initial encounter
CPT/HCPCS: 36415; 71045; 72100; 73502; 80048; 84484; 85025; 93005; 96374; 99284; J1885

== ENCOUNTER 2024-07-31 09:20 | Outpatient (CLI) | payer MEDICARE, MEDICAID, SELFPAY ==
--- NOTE | ~2024-07-31 | XR_ITS ---
XR cervical spine 4-5V Ordering provider: Taj Drake, History: . chronic LT shoulder pain, chronic neck pain X 1WK . Comparison: None. FINDINGS: VERTEBRAL BODIES: Normal height and alignment. No visible fracture or subluxation. The dens is intact . Degenerative changes with marginal osteophytes. DISK SPACES: Well maintained. Multilevel uncovertebral joint osteoarthritic changes. PARASPINOUS SOFT TISSUES: No prevertebral soft tissue swelling. IMPRESSION: No acute osseous abnormality cervical spine. Reviewed, dictated and finalized at location A.
--- NOTE | ~2024-07-31 | XR_ITS ---
Left Shoulder Technique: AP and axillary views were obtained. Clinical History: Pain Findings: No fracture or dislocation is seen. Osseous alignment is anatomic. The glenohumeral and acr omioclavicular joint spaces are preserved. Soft tissues are unremarkable. Impression: Unremarkable left shoulder radiographs. Reviewed, dictated and finalized at [facility]. Impression: Unremarkable left shoulder radiographs.
--- OUTSIDE RECORDS SUMMARY | 2024-07-31 09:47 | XMS_ITS | Continuity of Care Document ---
Author Organization [place] - [facility] [email or web address] [facility], [facility] Address [address] [place] [address] Care Team Providers Care Flight Agent Name Role Phone TAJ DRAKE Primary Care Provider Assessment Encounter Date Assessment Date Assessment LastModified by Organization Details LastModified Time 07/31/2024 07/31/2024 68 yo F with - LT SHOULDER PAIN - CHRONIC NECK PAIN - HTN - HLD - SEASONAL ALLERGIC RHINITIS - VIT D DEFICIENCY - VIT B12 DEFICIENCY - VEGETARIAN - OBESITY I CXR: 06/02/24. X-ray L-spine & Lt hip: 06/02/24. Annual labs: 01/28/24. D/w pt about her findings, recent labs & imagines and further plan of care. Will do x-rays. Advised pt to go for Mammo soon. Order given again. Will refer to PT. All meds verified with pt. Meds as directed. Diet and exercise explained in detail. BP diary education given. Fall risk precautions given. Cont f/u with Cardio at [facility] as per schedule. Cont f/u with Ophtho as per schedule. HM: WWE - S/p hysterectomy. Pt declined. Mammo - 2 yrs ago. Ordered. DEXA - Ordered. Colonoscopy - Pt declined. Cologuard ordered. Flu - Pt declined. Tdap - Pt declined. Pneumo - Pt declined. Shingrix - At pharmacy/HD. F/u in 1-2 months. Annual labs in 02/05. [email or web address] Not available 07/31/2024 09:53:08 Plan of Treatment Reminders Order Date Submit Date Provider Last Modified By Organization Details Last Modified Time Details Appointments Any 15 2024 08:30A M Taj Drake MD Not available Not available Not available Lab None recorded. Referral physical therapist referral - Please call patient to schedule. 2024 025 [facility] [address], [place], [address], 07/31/2024 10:25:22 Procedures None recorded. Surgeries None recorded. Imaging MAMMO, screening , bilateral [address], [address] [facility] [address], [place], [address], 07/31/2024 10:20:23 XR, cervical spine, 4 or 5 view [address], [address] [facility] [address], [place], [address], 07/31/2024 10:20:22 XR, shoulder, 2 or more view [address], [address] [facility] [address], [place], [address], 07/31/2024 10:20:22 Medication Orders Adult Low Dose Aspirin 81 mg tablet,de layed release 2024 025 [facility] [place], [address], 07/31/2024 09:43:42 carvedilo l 6.25 mg tablet 2024 025 [facility] [address] [place], [address], 07/31/2024 09:43:40 losartan 100 mg tablet 2024 025 [facility] [address] [place], [address], 07/31/2024 09:43:40 hydrochlo rothiazid e 25 mg tablet 2024 025 [facility] [address] [place], [address], 07/31/2024 09:43:41 fluticaso ne propionat e 50 mcg/actua tion nasal spray,herb pension 2024 025 [facility] [address], [address] [facility], [place], [address], 07/31/2024 09:43:42 cetirizin e 10 mg tablet 2024 025 [facility] [address] [facility], [place], [address], 07/31/2024 09:43:43 pravastat in 20 mg tablet 2024 025 [facility] [address], [address] [facility], [place], [address], 07/31/2024 09:43:41 cyanocoba kiley (vit B-12) 1,000 mcg/mL injection solution 2024 025 [facility] [facility], [place], [address], 07/31/2024 09:44:09 ergocalci ferol (vitamin D2) 1,250 mcg (50,000 unit) capsule 2024 025 [facility] [address] [facility] [place], [address], 07/31/2024 09:43:41 diclofena c sodium 75 mg tablet,de layed release 2024 025 [facility] [facility] [place], [address], 07/31/2024 09:43:41 Patient TargetsNo targets recorded. Patient Instructions Encounter Date Encounter Id Patient Instructions Last Modified By Organization Details Last Modified Time 07/31/2024 [id number] high blood pressure: care instructions [email or web address] Not available 07/31/2024 09:43:31 When You Want to Lose Weight: Care Instructions [email or web address] Not available 07/31/2024 09:43:30 Reason for Referral Physical Therapist Referral for Chronic pain of left upper limb Please call patient to schedule. Referring Physician: Taj Drake, Family Medicine, Encounter Date: 07/31/2024 Problems Name Problem SNOMED Code Status Onset Date Resolution Date Notes Provider Name and Address Organization Details Recorded Time Essential hypertensio n 32737827 Active 2001 Odalys Pereira RN null, [place] [employer] [facility] [employer] 4 11:31:50 Hypercholes terolemia 09885284 Active 2019 Odalys Pereira RN null, [facility] [employer] 11:35:16 Hypertensiv e disorder 44405346 Active 2023 Taj Drake MD [address], [address] [facility], [place], [address], [employer] 4 11:40:40 Hyperlipide paola 01760330 Active 2023 Taj Drake MD [address], [address] [facility], [place], [address], [employer] 4 11:40:43 Vitamin D deficiency 16509151 Active 2023 Taj Drake MD [address], [place] [address], [place], [address], [employer] 4 11:40:47 Obesity 830215820 Active 2023 Taj Drake MD [address], [address], [place], [address], [employer] 11:40:59 Vegan's anemia 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 Active 2023 Taj Drake MD [address], [address], [place], [address], [employer] 4 11:41:06 Vitamin B12 deficiency (non anemic) 58934938 Active 2024 Taj Drake MD [address], [address], [place], [address], [employer] 5 10:51:36 Seasonal allergic rhinitis 549105291 Active 2024 Taj Drake MD [address], [address], [place], [address], [employer] 5 11:13:09 Cough 92537207 Active 2024 Taj Drake MD [address], [address], [place], [address], [employer] 5 11:14:40 Near syncope 448361311 Active 2024 Taj Drake MD [address], [address], [place], [address], [employer] 5 14:45:14 Degeneratio n of lumbar interverteb ral disc 99565736 Active 2024 Taj Drake MD [address], [address], [place], [address], [employer] 5 15:28:38 Osteoarthri tis 613761511 Active 2024 Taj Drake MD [address], [place] [address], [place], [address], [employer] 5 15:28:47 Chronic pain of left upper limb 8899132394300 9103 Active 2024 Taj Drake MD [address], [address], [place], [address], [employer] 5 09:39:26 Chronic neck pain 8192286462356 Active 2024 Taj Drake MD [address], [address], [place], [address], [employer] 5 09:40:43 Problem Notes None recorded. Medical Equipment None Reported. Allergies No known drug allergies Medications Name Sig Start Date Stop Date Status Note LastModified by Organization Details LastModified Time carvedilo l 6.25 mg tablet Take 1 tablet twice a day by oral route as directed for 90 days. 2024 active by Aubrey Dover Not Available Not Available Not Available cetirizin e 10 mg tablet Take 1 tablet every day by oral route as directed for 90 days. 2024 active Not Available Not Available Not Avai lable benzonata te 200 mg capsule Take 1 capsule every 8 hours by oral route as needed for 7 days. 06/03 completed Not Available Not Available Not Available cyanocoba kiley (vit B-12) 1,000 mcg/mL injection solution Inject 1 mL every month by subcutan eous route for 90 days. 2024 active Not Available Not Available Not Avai lable diclofena c sodium 75 mg tablet,de layed release Take 1 tablet every 12 hours by oral route as needed for 30 days. 2024 active Not Available Not Available Not Avai lable pravastat in 20 mg tablet Take 1 tablet every day by oral route at bedtime for 90 days. 2024 active Not Available Not Available Not Avai lable hydrochlo rothiazid e 25 mg tablet Take 0.5 tablets every day by oral route in the morning for 90 days. 2024 active Not Available Not Available Not Avai lable Baby Aspirin 81 mg chewable tablet Chew 1 tablet every day by oral route in the morning. active Not Available Not Available No t Available ergocalci ferol (vitamin D2) 1,250 mcg (50,000 unit) capsule Take 1 capsule every week by oral route as directed for 90 days. 2024 active Not Available Not Available Not Avai lable losartan 100 mg tablet Take 1 tablet every day by oral route in the morning for 90 days. 2024 active Not Available Not Available Not Avai lable fluticaso ne propionat e 50 mcg/actua tion nasal spray,herb pension [place] 2 sprays every day by intranas al route as directed for 90 days. 2024 active Not Available Not Available Not Avai lable Adult Low Dose Aspirin 81 mg tablet,de layed release Take 1 tablet every day by [...] Details Last Updated DateTime 5 154.94 cm 34.1 kg/m2 84776.7 3 g 97.5 [degF] 96 % 96 % 63 /min 120 mm[Hg] 76 mm[Hg] Odalys Pereira RN [employer] 09:36:34 Social History Question Answer Notes LastModified by [employer] Details LastModified Time Tobacco Smoking Status Never Smoker Odalys Pereira RN [facility], [employer] 01/22/2024 11:37:27 What Is Your Level Of Caffeine Consumption? Occasional [email or web address] Information not available 01/22/2024 Do You Use Your Seat Belt Or Car Seat Routinely? Yes [email or web address] Information not available 01/22/2024 Do You Participate In Social Media? Yes [email or web address] Information not available 01/22/2024 Sex: Unknown Functional Status Question Answer Note LastModified by [employer] Details LastModified Time Do you use any illicit or recreational drugs? No [email or web address] Information not available 01/22/2024 What is your level of alcohol consumption? None [email or web address] Information not available 01/22/2024 Mental Status Question Answer Note LastModified by Organization D etails LastModified Time Do you feel stressed (tense, restless, nervous, or anxious, or unable to sleep at night)? [id number] [email or web address] Information not available 01/22/2024 Family History Relationship Description Onset Age of this Age Resolved Age Notes LastModified by Organization Details LastModified Time Mother Hypertensive disorder 60 74 [email or web address] Not available 01/21 11:32:54 Father Hypertensive disorder 60 75 [email or web address] Not available 01/21 11:33:50 Father Diabetes mellitus 75 Not available 01/21 11:34:24 Father Hypercholest erolemia 75 [email or web address] Not available 01/21 11:36:11 Medical History No medical history recorded. Gynecological HistoryNo gynecological history recorded. Obstetrics History GPAL:G 0 P 0 0 0 0 Past Encounters Encounter ID Performer Location Encounter Start Date Encounter Closed Date Diagnosis/Indication Diagnosis SNOMED-CT Code Diagnosis ICD10 Code Diagnosis Note [id number] Taj Drake MD [facility] [address] [place] [address] 07/31/2024 09:15:42 07/31/2024 10:20:22 Vitamin D deficiency 52894925 E55.9 Vitamin B1 2 deficiency (non anemic) 67370094 E53.8 Hypertensive disorder 38 243526 I10 BP diary education given. Pt will be f/u with her cardio in few weeks. Hyperlipidemia 47645540 E78.5 Vegan's anemia 736006706 D51.3 Seasonal a llergic rhinitis 777741302 J30.2 Obesity 328249060 E66.9 Chronic pa in of left upper limb 7355962516 5662885 M25.512 G89.29 Chronic neck pain 442633 8705 107 M54.2 G89.29 Screening mammography 24 163025 Z12.31 Health Concerns Section Related Observation LastModified by Organization Detai ls LastModified Time None Recorded Concern Status LastModified by Organization Details LastModified Time None Recorded Payers Encounter Date Sequence Insurance Name Policy Number Policy Galeano Covered Member ID Galeano Member ID Guarantor Name 07/31/2024 1 [place] Home Drake [id number] Alona Drake 07/31/2024 2 [place] [facility] [place] OF PUBLIC AID Home Drake [id number] Alona Drake Notes Date Note Type Note Provider Name and Address Organization Details Recorded Time 07/31/2024 text/html FU V+ ACV: C/o Lt shoulder and neck area pain for last few yrs, but for last couple weeks, its bothering her more. Denies any recent fall/trauma/injur y in the past. Pt had Rt shoulder pain few yrs ago and it got much better after PT and now no more concern with it. Doing overall well. Denies any problem with meds. 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 Pt is f/u with Cardio at [facility] and everything is good as per them. Taj Drake MD [address] [facility], [place] [address], [place], [address], [facility] [email or web address] [facility] 07/31/2024 09:53:32 OBGyn Episode No OBEpisode recorded.
== END 2024-07-31 09:21 | disposition home or self-care (01) ==
PROVIDERS: PCP Family Medicine; Visit Provider Family Medicine
DX: G89.29 Other chronic pain (principal); M25.512 Pain in left shoulder; M54.2 Cervicalgia
CPT/HCPCS: 72050; 73030

== ENCOUNTER 2025-02-09 13:56 | Outpatient (CLI) | payer MEDICARE, MEDICAID, SELFPAY ==
--- NOTE | ~2025-02-09 | MM_ITS ---
EXAMINATION: MM screening mark anthony BI w alfreda HISTORY: Screening. TECHNIQUE: Craniocaudal and mediolateral oblique 3-D tomosynthesis images were obtained and synthetic 2-D images were generated. CAD analysis was submitted and interpreted. COMPARISON: 2019 BREAST PARENCHYMAL COMPOSITION: Not Dense: There are scattered areas of fibroglandular tissue FINDINGS: No suspicious masses are seen. There are no suspicious calcifications. No unexplained architectural distortion is seen. There are no skin or nipple abnormalities identified. There is no adenopathy seen on the images submitted. IMPRESSION: No mammographic evidence to suggest malignancy is seen. The patient may return to screening mammography as per ACR guidelines. BI-RADS 1 - Negative. Reviewed, dictated and finalized at location [facility]. [facility]
== END 2025-02-09 13:57 | disposition home or self-care (01) ==
LOC: MICIMG 13:57
PROVIDERS: PCP Family Medicine; Visit Provider Family Medicine
DX: Z12.31 Encounter for screening mammogram for malignant neoplasm of breast (principal)
CPT/HCPCS: 77063; 77067